=== PATIENT | male | born 1960 | race Caucasian/White ===

== ENCOUNTER 2023-08-18 13:29 | Day surgery (SDC) | payer BC, SELFPAY ==
[2023-08-18 13:30] VITALS: BP 195/104
[2023-08-18 13:40] VITALS: BMI 34.2
[2023-08-18 13:48] VITALS: BP 195/104
--- NOTE | 2023-08-18 13:53 | ITS.CL.CATH ---
Tax Preparer - Catheterization
Cardiac Catheterization
Procedure Report:
CARDIAC CATHETERIZATION REPORT
Date of Procedure: 08/18/2023
Referring: Satish Burton MD
Indication: Preop for ARA with abnormal stress test
HEMODYNAMIC DATA
AO: 187/104
LV: 187/17
LEFT VENTRICULOGRAPHY: Normal left ventricular wall motion. An ejection fraction could not be calculated due to ventricular ectopy but is clearly normal
CORONARY ANGIOGRAPHY
Dominance: Right
Left Main: Normal
LAD: Focal 70 % mid LAD stenosis. There is 90% proximal stenosis in the large first diagonal branch.
Circumflex: There is a tiny ramus intermedius branch. The circumflex proper has mild luminal irregularities. OM1 is a medium sized vessel with mild luminal disease. OM 2 is small. OM 3 is large with 80% proximal stenosis. The circumflex
continues into the AV groove supplying three moderate-sized left posterolateral branches which have diffuse and severe disease
RCA: The RCA has 80-90% proximal stenosis and is occluded in the midportion. The RPDA fills via [id number]-[id number] collaterals and has mild to moderate diffuse disease
Closure Device: None-the procedure was performed via the right radial artery. The Chivo's test was normal prior to the procedure.
Radiation (mGy): 663
DAP (cm2.Gy): 57.9
Fluoroscopy time: 4.1 minutes
CONCLUSIONS
1: Systemic hypertension
2: Normal left ventricular function-an ejection fraction could not be calculated due to ventricular ectopy
3. Severe triple-vessel CAD as described
4. Recommend postponing scheduled total hip arthroplasty and proceeding with evaluation for elective CABG. Optimal revascularization if technically feasible would include grafts to LAD, D1, OM3, and RPDA
5. We will add sublingual nitroglycerin as needed, amlodipine 5 mg daily as all blood pressures here today have been significantly elevated, aspirin 81 mg daily and high intensity statin. The patient has been advised to avoid all strenuous
activity until coronary artery surgery has been accomplished
Copy to: Satish Burton MD, Black Osuna MD
Jay Barrera MD, FAC, [facility]
[2023-08-18] MEDS: NSS 362 ML IV (14:06)
[2023-08-18 14:08] LABS: Glucose - Point of Care 128 mg/dl (70-99)
[2023-08-18 15:26] VITALS: BP 155/119
--- NOTE | 2023-08-18 15:28 | CONSULT.CT ---
Consultation
-
Date/Time Consultation Requested: 08/18/23
Date/Time Consultation Performed: 08/18/23 1530
Requesting Provider: Dr. Jay Barrera MD
Performing Provider: Zulema Hernández PA-C on behalf of Dr. Jude Frazier MD.
Reason for Consultation: Evaluation for coronary artery revascularization
Patient History
Physicians
Family Physician: Dr. desmond Osuna
Outpatient Social Media Editor: Dr. Satish Burton MD.
Inpatient Social Media Editor: [facility] Cardiology. Interventionalist Cards: Dr. Jay Barrera MD.
History of Present Illness
Patient is extremely pleasant 63-year-old male with PMH of paroxysmal atrial fibrillation, atrial flutter status post ablation, off oral anticoagulation due to occupation, newly diagnosed NIDDMII, HTN, gout, and obesity class I (BMI 34.2).
Patient follows with Dr. Satish Burton of cardiology consulted [place]. He presented to his office to undergo cardiac clearance for a scheduled elective total hip arthroplasty with Dr. Eh Harmon MD. at [facility]. Patient was
scheduled for an outpatient stress test on 08/11/2023 prior to undergoing necessary elective joint replacement. Stress test was slightly abnormal and myocardial perfusion. There was a small area of reversibility in the mid inferior wall concerning
for small area of ischemia. Ejection fraction was estimated to be 50 to 62%.
Given the findings above the patient was scheduled for an elective outpatient cardiac catheterization today 08/18/[address] Barrera. Please see Dr. Barrera's full report for complete details summary is as follows:
LM: normal
LAD: 70% mid. 90% prox in large D1 branch
LCx: Mild LI
OM3: 80% prox
RCA: 80-90% prox, occluded in midportion.
RPDA: fills via L->R collaterals.
EF was not calculated due to ventricular ectopy.
old TTE 03/20/17:
EF 60%
MV: trace mr
AV: no as/ai
TV: trace tr
PV: trace pr
LVSD: 34
LVDD: 51
PAP: 26
Overall, the patient is asymptomatic, and reports no symptoms. It comes as somewhat of a shock as he was only undergoing clearance in preparation for his hip arthroplasty.
Past Medical History
Past Medical History: Other
Paroxysmal atrial fibrillation
Atrial flutter status post ablation
Off oral anticoagulation with Eliquis due to occupation (states he has been off for roughly 1 year)
Newly diagnosed NIDDMII
HTN
Obesity class I (BMI 34.2)
Gout
Past Surgical History
Past Surgical History: Other
Ablation for atrial flutter-2019, [facility]
Implantable loop recorder-[facility]
Cervical fusion�2000
Left arthroscopic knee surgery�2008
Cyst removal
Dental History
Noncontributory
Family History
Mother: at Age (75) and Cause of (History of diabetes, complications with renal failure)
Father: at Age (82) and Cause of (Massive myocardial infarction)
Family Medical History: Early CAD
Social History
Alcohol: Occasional (2-7 drinks per week)
Drug: Marijuana
Tobacco: Former Smoker (Quit in 2018. Prior to that smoked 2PPD x 40 years)
Personal:
Living: With Spouse (3 children)
Employment: Employed (mechanical manufacturing engineer)
Allergies
Allergy/AdvReac Type Severity Reaction Status Date / Time
No Known Allergies Allergy Verified 08/18/23 13:51
Home Medications
Medication Instructions Recorded Confirmed Type
aspirin 81 mg tablet 81 mg PO DAILY 08/18/23 08/18/23 History
carvedilol 6.25 mg tablet (Coreg) 12.5 mg PO BID 08/18/23 08/18/23 History
colchicine 0.6 mg tablet (Colcrys) 0.6 mg PO DAILY 08/18/23 08/18/23 History
empagliflozin 25 mg tablet 25 mg PO DAILY 08/18/23 08/18/23 History
(Jardiance)
indomethacin 50 mg capsule 50 mg PO DAILY 08/18/23 08/18/23 History
semaglutide 1 mg/dose (2 mg/1.5 0.5 mg SC QWEEK 08/18/23 08/18/23 History
mL) subcutaneous pen injector
Review of Systems
-
History Source: Patient
General: Reports No Symptoms
HEENT: Reports No Symptoms
Respiratory: Reports No Symptoms
Cardiac: Reports No Symptoms
Abdomen/GI: Reports Reflux and Indigestion; Denies Abdominal Pain, Nausea, Vomiting, Diarrhea, Constipation or BRBPR
: Reports Nocturia (at least 1x/night ); Denies Dysuria, Frequency, Urgency or Hematuria
Musculoskeletal: Reports Myalgias, Arthralgias and Joint Pain
Skin: Denies Itching or Rash
Neurological: Reports No Symptoms
Vascular: Reports No Symptoms
Physical Exam
Vital Signs
Temp 98.1 F 08/18/23 13:30
Temp route: Temporal 08/18/23 13:30
Pulse 79 08/18/23 13:48
Resp Rate 26 08/18/23 13:48
Blood pressure 195/104 08/18/23 13:48
Blood pressure extremity used: Left upper arm 08/18/23 13:30
Position: Sitting 08/18/23 13:30
MAP (cuff-Brianda Monitor) 127 08/18/23 13:48
SaO2 99 08/18/23 13:48
Oxygen Mode of Delivery Room air 08/18/23 13:30
Can the patient verbally communicate their pain? Yes 08/18/23 13:30
Actual Weight 265 lb 15.803 oz 08/18/23 13:40
Body Mass Index (BMI) 34.2 08/18/23 13:40
Diagnostic Studies
Cardiac catheterization: 08/18/23
LM: normal
LAD: 70% mid. 90% prox in large D1 branch
LCx: Mild LI
OM3: 80% prox
RCA: 80-90% prox, occluded in midportion.
RPDA: fills via L->R collaterals.
EF was not calculated due to ventricular ectopy.
Old TTE 03/20/17:
EF 60%
MV: trace mr
AV: no as/ai
TV: trace tr
PV: trace pr
LVSD: 34
LVDD: 51
PAP: 26
Exam
General: Well Developed, Well Nourished and No Apparent Distress
HEENT: Normocephalic, Moist Mucous Membranes, Atraumatic, PERRLA and EOMI
Neck: Trachea Midline; Negative Carotid Bruit
Respiratory: Clear; Negative Wheezes, Crackles, Rhonchi or Accessory Muscle Use
Cardiac: S1/S2, Regular Rhythm and Murmur (Faint 1-2/6 murmur ); Negative Rub or Gallop
GI: Soft, Non Tender, Non Distended and Normal Bowel Sounds
Rectal: Deferred by Provider
Skin: Warm and Dry; Negative Rash
Neuro: AO x 3, No Motor Deficits and CN X-XII Intact
Extremities: Negative Upper Level Edema, Lower Level Edema, Upper Level Cyanosis, Lower Level Cyanosis, Upper Level Clubbing or Lower Level Clubbing
Psych: Calm
Assessment / Plan
-
Assessment:
63-year-old male with PMH of:
Paroxysmal atrial fibrillation
Atrial flutter status post ablation
Off oral anticoagulation with Eliquis due to occupation (states he has been off for roughly 1 year)
Newly diagnosed NIDDMII
HTN
Obesity class I (BMI 34.2)
Gout
H/o ablation for atrial flutter-2019, [facility]
H/o implantable loop recorder-2020, [facility]
H/o cervical fusion�1999
H/o left arthroscopic knee surgery�2008
H/o cyst removal
Now found to have newly diagnosed:
Multivessel coronary artery disease with preserved left ventricular ejection fraction
Plan:
Patient's plan will be discussed with attending physician Dr. Jude Frazier MD
Patient will present electively as an outpatient to the office of Dr. Frazier for consultation on Thursday08/25/2023 at 0830
Further details regarding surgical intervention will be determined during that consultation.
Patient will need to undergo formal preadmission testing.
I would recommend pulmonary function tests given the patient's former smoking history of 2 packs/day x 40 years. Patient quit in 2018
[2023-08-18] MEDS: NORVASC 5 MG PO (16:04)
[2023-08-18] MEDS: COREG 12.5 MG PO (16:24)
== END 2023-08-18 18:05 | disposition home or self-care (01) ==
LOC: CATH 13:29
PROVIDERS: ATTENDING PHYSICIAN Internal Medicine Cardiovascular Disease; CONSULT PHYSICIAN Thoracic Surgery (Cardiothoracic Vascular Surgery); FAMILY PHYSICIAN Family Medicine; OTHER PHYSICIAN Internal Medicine Clinical Cardiac Electrophysiology
DX: I25.10 Atherosclerotic heart disease of native coronary artery without angina pectoris (principal); I10 Essential (primary) hypertension; E66.9 Obesity, unspecified; Z98.890 Other specified postprocedural states; I48.92 Unspecified atrial flutter; I48.0 Paroxysmal atrial fibrillation; Z68.34 Body mass index [BMI] 34.0-34.9, adult; Z79.82 Long term (current) use of aspirin; Z79.84 Long term (current) use of oral hypoglycemic drugs; Z01.810 Encounter for preprocedural cardiovascular examination; R94.39 Abnormal result of other cardiovascular function study
CPT/HCPCS: 82962; 93458; C1894; Q9967

== ENCOUNTER 2023-09-07 05:06 | Inpatient (IN) | payer BC, SELFPAY ==
[2023-08-28 12:05] VITALS: BMI 32.2
[2023-08-28 12:45] LABS: % Basophils 0.7 % (0-2); % Eosinophils 12.2 % (0-6); % Immature Granulocytes 0.1 % (0-0.5); % Lymphocytes 21.1 % (20.5-51.1); % Monocytes 5.1 % (1.7-9.3); % Neutrophils 60.8 % (42.2-75.2); Absolute Basophils 0.1 10^3/uL (0-0.2); Absolute Eosinophils 0.8 10^3/uL (0-0.7); Absolute Lymphocytes 1.5 10^3/uL (1.2-3.4); Absolute Monocytes 0.4 10^3/uL (0.1-0.6); Absolute Neutrophils 4.2 10^3/uL (1.4-6.5); Hematocrit 45.8 % (39.0-52.0); Hemoglobin 15.8 g/dL (13.0-18.0); Mean Corp Hgb Conc. 34.5 g/dL (33.0-37.0); Mean Corpuscular Hgb 27.5 pg (27.0-31.0); Mean Corpuscular Volume 79.7 fL (80.0-94.0); Mean Platelet Volume 9.3 fL (7.4-10.4); Nucleated Red Blood Cells % 0 % (-); Platelet Count 250 10^3/uL (130-400); Red Blood Cell Count 5.75 10^6/uL (4.70-6.10); Red Cell Dist. Width 13.6 % (11.5-14.5); White Blood Cell Count 6.9 10^3/uL (4.8-10.8)
[2023-08-28 12:47] LABS: Urine Albumin Negative (Neg - Trace); Urine Bilirubin Negative (Negative); Urine Character Clear (Clear); Urine Color Yellow; Urine Glucose 3+ (Negative); Urine Ketone Negative (Negative); Urine Leukocyte Negative (Negative); Urine Nitrite Negative (Negative); Urine Occult Blood Negative (Negative); Urine Specific Gravity 1.015 (<1.030); Urine Urobilinogen Negative (Neg - 1+)
[2023-08-28 12:55] LABS: INR 1.08; PT 13.9 Sec (11.4-14.6)
[2023-08-28 12:56] LABS: ALT (SGPT) 26 U/L (0-50); APTT 42.5 Sec (23.4-35.0); AST (SGOT) 22 U/L (17-59); Albumin 4.7 g/dl (3.5-5.0); Alkaline Phosphatase 89 U/L (38-126); Blood Urea Nitrogen 24 mg/dl (9-20); Carbon Dioxide 24 mmol/L (22-30); Chloride 107 mmol/L (98-107); Direct Bilirubin 0.1 mg/dl (0.0-0.4); Estimated Creatinine Clearance 95 ml/min; Glucose 108 mg/dl (70-99); Potassium 4.3 mmol/L (3.5-5.1); Sodium 138 mmol/L (135-145); Total Bilirubin 1.4 mg/dl (0.2-1.3); Total Protein 7.5 g/dl (6.3-8.2); eGFR > 60.00
--- NOTE | 2023-08-28 13:35 | CM ---
CM met w/ patient and spouse during PATs for planned CABG, 09/06.
Pt. resides in a private, 1 story home w/ 1 HAIM w/ spouse. Patient is functionally indep. w/ ADLs, mobility without any DME. Pt. does have RW at home, which he uses PRN due to hip issues (he is scheduled for hip surgery in sev. months).
Reviewed pre and post op routines.
Soap, shower instructions, Cardiac Rehab booklet provided.
Discussed post op restrictions to include lifting, driving, flying and sternal precautions.
Reviewed post op appointments, Cardiac Rehab, and visit from CT Transitional Care RN.
Plan for CT Surgery 09/06.
Anticipated DC plan is for home w/ CT Transitional Care RN.
CM to follow for DC planning needs.
[2023-08-28 13:55] LABS: Glycohemoglobin (HgbA1c) 6.9 % (4.0-5.6)
[2023-09-07] VITALS (16 sets, daily range): BP systolic 97–158; BP diastolic 57–99; BMI 32.2
--- NOTE | 2023-09-07 00:51 | W.PN.CT ---
Assessment / Plan
-
Assessment:
-S/P CABG x 4 (PRAMOD to LAD, GSV to D1, GSV to OM3, GSV to PDA)/Endoscopic harvest/prep of RLE GSV/ ELAA, by Dr. Frazier, 09/07/23, pod#1
-Severe 3v CAD
-LVEF 55-60% per intraop XOCHILT
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
-HTN
-T2DM (A1C 6.9)
-Hyperlipidemia
-Class 1 obesity
-Gout
-Former tobacco abuse (80 pk/yrs, quit 2018)
-DJD of hip, awaiting hip replacement surgery
-S/p Ablation for atrial flutter-2019, [facility]
-S/P Implantable loop recorder-2020, [facility]
-S/p Cervical fusion�1999
-S/p Left arthroscopic knee surgery�2008
-S/P Cyst removal
-Acute postop blood loss/Anemia
-Acute postop atelectasis/pleural effusion
-Acute postop hypovolemia with subsequent hypervolemia
Plan:
-No major issues overnight. Hemodynamically and neurologically intact
-Successfully extubated in the OR, 09/07/23
-Weaned off of Levophed gtt, remains on insulin gtt per protocol
-Last CI , u/o since OR mL
-Monitor chest tube output: 2meds , R/L pls
-D/C'd swan and a-line this AM @ 0430
-Transfer to tele phase tomorrow once off insulin gtt
-D/C higginbotham catheter
-Maintain cordis
-No temporary pacer
-Cont. current meds (ASA, Amiodarone, Lipitor, Lopressor- held last night given hypotension on Levophed; add Plavix)
-Encourage use of IS
-Wean off of O2 as tolerated
-OOB into chair/Ambulate
Subjective
-
Date of Service: September 07, 2023
Objective Data
-
PT 13.9 Sec (11.4-14.6) 08/28/23 12:16
INR 1.08 08/28/23 12:16
APTT 42.5 Sec (23.4-35.0) H 08/28/23 12:16
[2023-09-07] MEDS: BACTROBAN 2% OINTMENT 1 APPLIC NASAL ×2 (05:55→21:46)
[2023-09-07] MEDS: COREG 12.5 MG PO (05:56)
[2023-09-07] MEDS: PROTONIX 40 MG PO (05:56)
[2023-09-07] MEDS: MAGNESIUM OXIDE 500 MG PO (05:56)
--- NOTE | 2023-09-07 06:31 | W.CVOR.SURPR ---
CVOR Surgeon Immed Pre Op
-
I have examined this patient prior to performance of the scheduled procedure.
The patient's condition is unchanged from the time of the dictated/written History and
Physical and the patient is able to undergo the scheduled procedure.
[2023-09-07 06:46] LABS: Hematocrit 43.2 % (39.0-52.0); Hemoglobin 14.5 g/dL (13.0-18.0); Mean Corp Hgb Conc. 33.6 g/dL (33.0-37.0); Mean Corpuscular Hgb 27.2 pg (27.0-31.0); Mean Corpuscular Volume 81.1 fL (80.0-94.0); Mean Platelet Volume 9.3 fL (7.4-10.4); Platelet Count 222 10^3/uL (130-400); Red Blood Cell Count 5.33 10^6/uL (4.70-6.10); Red Cell Dist. Width 13.8 % (11.5-14.5); White Blood Cell Count 6.4 10^3/uL (4.8-10.8)
[2023-09-07 07:07] LABS: Blood Urea Nitrogen 26 mg/dl (9-20); Calcium 9.3 mg/dl (8.4-10.2); Carbon Dioxide 22 mmol/L (22-30); Chloride 109 mmol/L (98-107); Estimated Creatinine Clearance 116 ml/min; Glucose 126 mg/dl (70-99); Magnesium 2.3 mg/dl (1.6-2.3); Potassium 4.1 mmol/L (3.5-5.1); Sodium 137 mmol/L (135-145); eGFR > 60.00
[2023-09-07 07:41] LABS: ACT+ - POC 93 Seconds (82-134)
[2023-09-07 07:43] LABS: B.E. - POC -2.9 mmol/L; Glucose - POC 118 mg/dl (65-99); HCO3 - POC 21 mmol/L (21-29); Hematocrit - POC 38 % PCV (42-52); Hemodilution- POC No; O2 Saturation %Calculated-POC 98.9 5 (92-96); PCO2 - POC 32 mmHg (35-45); PO2 - POC 124 mmHg (80-100); Potassium - POC 3.7 mmol/L (3.6-5.0); Sodium - POC 144 mmol/L (135-145); pH - POC 7.42 (7.35-7.45)
[2023-09-07 08:26] LABS: Urine Albumin Negative (Neg - Trace); Urine Bilirubin Negative (Negative); Urine Character Clear (Clear); Urine Color Yellow; Urine Glucose 3+ (Negative); Urine Ketone Negative (Negative); Urine Leukocyte Negative (Negative); Urine Nitrite Negative (Negative); Urine Occult Blood Negative (Negative); Urine Urobilinogen Negative (Neg - 1+)
--- NOTE | 2023-09-07 08:35 | CM ---
Reviewed chart. Mr. Beverly is in the operating room today. Prior to admission he resides with his spouse in one story home with one step to enter. Prior to admission he was independent with ambulation and adls. He has a rolling walker at home
that he uses as needed due to hip issues. will need to see his functional status post surgery to see if he will need any skilled care needs. Medical work-up in progress. The discharge plan is undetermined at this time.
[2023-09-07 10:29] LABS: ACT+ - POC 598 Seconds (82-134)
[2023-09-07 10:57] LABS: ACT+ - POC 467 Seconds (82-134)
[2023-09-07 11:12] LABS: B.E. - POC -2.4 mmol/L; Glucose - POC 200 mg/dl (65-99); HCO3 - POC 24 mmol/L (21-29); Hematocrit - POC 35 % PCV (42-52); Hemodilution- POC Yes; Hemoglobin Calculated - POC 11.8; Ionized Calcium - POC 1.13 mmol/L (1.12-1.27); PCO2 - POC 44 mmHg (35-45); PO2 - POC 469 mmHg (80-100); Potassium - POC 4.9 mmol/L (3.6-5.0); Sodium - POC 138 mmol/L (135-145); pH - POC 7.34 (7.35-7.45)
[2023-09-07 11:14] LABS: ACT+ - POC 754 Seconds (82-134)
[2023-09-07 11:37] LABS: B.E. - POC -3.8 mmol/L; Glucose - POC 200 mg/dl (65-99); HCO3 - POC 22 mmol/L (21-29); Hematocrit - POC 36 % PCV (42-52); Hemodilution- POC Yes; Hemoglobin Calculated - POC 12.1; Ionized Calcium - POC 1.18 mmol/L (1.12-1.27); O2 Saturation %Calculated-POC 99.9 5 (92-96); PCO2 - POC 42 mmHg (35-45); PO2 - POC 290 mmHg (80-100); Potassium - POC 4.8 mmol/L (3.6-5.0); Sodium - POC 137 mmol/L (135-145); pH - POC 7.33 (7.35-7.45)
[2023-09-07 11:39] LABS: ACT+ - POC 606 Seconds (82-134)
[2023-09-07 12:02] LABS: B.E. - POC -2.1 mmol/L; Glucose - POC 179 mg/dl (65-99); HCO3 - POC 23 mmol/L (21-29); Hematocrit - POC 35 % PCV (42-52); Hemodilution- POC Yes; Hemoglobin Calculated - POC 11.9; Ionized Calcium - POC 1.21 mmol/L (1.12-1.27); O2 Saturation %Calculated-POC 99.9 5 (92-96); PCO2 - POC 39 mmHg (35-45); PO2 - POC 255 mmHg (80-100); Potassium - POC 4.5 mmol/L (3.6-5.0); Sodium - POC 141 mmol/L (135-145); pH - POC 7.38 (7.35-7.45)
[2023-09-07 12:04] LABS: ACT+ - POC 530 Seconds (82-134)
--- NOTE | 2023-09-07 12:23 | CON.INTV ---
Consultation
Consultation Request
Date/Time Consultation Requested: 09/07/2023-1:30 PM
Date/Time Consultation Performed: 09/07/2023-1:30 PM
Requesting Provider: Cardiothoracic surgery
Performing Provider: Dr. Steiner
Reason for Consultation: Postoperative ventilator/critical care management
Medical History
-
Chief Complaint: CAD
History of Present Illness:
63-year-old male with a history of hypertension, atrial fibrillation/flutter, diabetes and morbid obesity underwent CABG and judicial reporter consulted for postoperative ventilator/critical care management 09/07/2023.Patient is intubated and mechanically
ventilated and review of systems was unobtainable. Operative records were reviewed Patient was extubated, still extremely groggy, somewhat combative, review of systems was unobtainable.
Past Medical History
Past Medical History: None (Hypertension. Hyperlipidemia. Morbid obesity. GERMAN suspected. Atrial fibrillation status post ablation 2015. Atrial flutter. Type 2 diabetes. Cervical fusion 1999)
Social History
Tobacco: Non-smoker
Alcohol: Occasional
Drug: None
Personal:
Living: With Family
Occupational Exposures: No known asbestos exposure
Environmental Exposures: No known tuberculosis exposure
Family History
Family History: Other (CAD, diabetes, atrial fibrillation)
Allergies / Home Medications
Allergies
Allergy/AdvReac Type Severity Reaction Status Date / Time
No Known Allergies Allergy Verified 08/25/23 14:34
Home Medications
Medication Instructions Recorded Confirmed Last Taken Type
amlodipine 5 mg tablet 5 mg PO DAILY #90 tabs 08/18/23 09/07/23 1 Day Ago Rx
~09/06/23
atorvastatin 80 mg tablet 80 mg PO QPM #90 tabs 08/18/23 09/07/23 09/06/23 19:00 Rx
carvedilol 6.25 mg tablet (Coreg) 12.5 mg PO BID 08/18/23 09/07/23 09/06/23 18:00 History
colchicine 0.6 mg tablet (Colcrys) 0.6 mg PO DAILY 08/18/23 09/07/23 09/06/23 08:00 History
empagliflozin 25 mg tablet 25 mg PO DAILY 08/18/23 09/07/23 09/06/23 08:00 History
(Jardiance)
indomethacin 50 mg capsule 50 mg PO DAILY 08/18/23 08/25/23 08/17/23 08:00 History
nitroglycerin 0.4 mg sublingual 0.4 mg sublingual [id number] PRN 08/18/23 08/25/23 Unknown Rx
tablet chest pain #25 tabs
aspirin 81 mg capsule 81 mg PO DAILY 08/25/23 09/07/23 09/06/23 08:00 History
semaglutide 1 mg/dose (4 mg/3 mL) 1 mg SC SA 08/25/23 09/07/23 09/05/23 15:00 History
subcutaneous pen injector (Ozempic)
Review of Systems
-
Unable to Obtain full review of systems at this time due to: Patient Intubation
Vitals / Labs / Diagnostic Testing
Lab Data
09/07/23 06:10
09/07/23 06:10
Diagnostic Testing:
Physical Exam
-
Exam:
Well-nourished and well-developed in no apparent distress
HEENT-atraumatic, normocephalic, oral tracheal intubation
Heart-regular rate and rhythm-no murmurs, rubs or gallops
Chest-clear to auscultation, no wheezes, crackles, median sternotomy bandage is not removed
Abdomen soft nondistended
Extremities-no cyanosis, clubbing, edema and good peripheral pulses
Integument-intact, no rashes, lesions or ecchymosis
Neurologically not alert, not oriented, not moving any of his extremities sedated on a ventilator
Assessment
-
63-year-old male with a history of hypertension, atrial fibrillation/flutter, diabetes and morbid obesity underwent CABG and judicial reporter consulted for postoperative ventilator/critical care management 09/07/2023.
Assessment
Significant CAD
Status post CABG x 4-liter-LAD, GSV-D1, GSV-OM 3, GSV to PDA-Dr. Frazier 09/07/2023
Hyperglycemia
Mildly elevated total bilirubin-1.4
Conditions present prior to admission:
Hypertension.
Hyperlipidemia.
Morbid obesity-BMI greater than 40
GERMAN suspected.
Atrial fibrillation status post ablation 2015.
Atrial flutter.
Type 2 diabetes.
Cervical fusion 1999
Plan
Patient extubated in the operating room-currently agitated, somewhat somnolent
Wean FiO2
Noninvasive ventilation or BiPAP as backup if remains somnolent
Follow ABG if necessary
Aspiration precautions
Nebulizers if needed-currently not bronchospastic
Incentive spirometry
Pulmonary artery catheter parameters will be followed
Pressors/antihypertensive/inotropes/diuretics will be provided as needed
Monitor chest tube output
Monitor hemoglobin
Monitor platelet count and coags
Transfuse blood product if needed
CT surgery following chest tubes
Monitor blood sugar
Insulin drip per protocol
Aspiration precautions
VAP prevention protocol
DVT prophylaxis
Early nutrition
Early mobilization
Outpatient obstructive sleep apnea/sleep disordered breathing follow-up
Critical care statement: A total of 55 minutes of critical care time was provided for this patient today. This includes management of ventilator, spontaneous breathing trial, arterial blood gases, pressors, of unstable vital signs, evaluation of the
patient at bedside, reviewing the patient's pertinent medical records including radiographs, microbiology, laboratory evaluations, and discussion with primary team and critical care nursing.
Diagnostic data:
Chest x-ray 08/28/2023-NAD
55-60%, trace mitral regurgitation, mild aortic stenosis echocardiogram 08/28/2023-EF, JHONY 1.3 cm�, PA systolic 20-25
Cardiac catheterization 08/18/2023-normal left ventricular function, severe triple-vessel CAD, recommended postponing total hip arthroplasty and first performed CABG
Data Reviewed
-
EKG: Report reviewed by me
Radiology: Report reviewed by me
CT Scan: Report reviewed by me
Medical Tests (Nuc Med, Echo etc): Report reviewed by me
Labs: Labs reviewed by me
Old Records: Reviewed
Critical Care Time (in minutes): 55
[2023-09-07 12:27] LABS: ACT+ - POC 500 Seconds (82-134)
[2023-09-07 12:36] LABS: B.E. - POC -0.5 mmol/L; Glucose - POC 159 mg/dl (65-99); HCO3 - POC 25 mmol/L (21-29); Hematocrit - POC 36 % PCV (42-52); Hemodilution- POC Yes; Hemoglobin Calculated - POC 12.3; Ionized Calcium - POC 1.19 mmol/L (1.12-1.27); O2 Saturation %Calculated-POC 99.9 5 (92-96); PCO2 - POC 41 mmHg (35-45); PO2 - POC 278 mmHg (80-100); Potassium - POC 4.5 mmol/L (3.6-5.0); Sodium - POC 143 mmol/L (135-145); pH - POC 7.39 (7.35-7.45)
[2023-09-07 12:37] LABS: ACT+ - POC 558 Seconds (82-134)
[2023-09-07 12:55] LABS: ACT+ - POC 539 Seconds (82-134)
[2023-09-07 13:01] LABS: B.E. - POC -1.6 mmol/L; Glucose - POC 146 mg/dl (65-99); HCO3 - POC 24 mmol/L (21-29); Hematocrit - POC 37 % PCV (42-52); Hemodilution- POC Yes; Hemoglobin Calculated - POC 12.6; Ionized Calcium - POC 1.21 mmol/L (1.12-1.27); O2 Saturation %Calculated-POC 99.8 5 (92-96); PCO2 - POC 44 mmHg (35-45); PO2 - POC 257 mmHg (80-100); Potassium - POC 4.1 mmol/L (3.6-5.0); Sodium - POC 144 mmol/L (135-145); pH - POC 7.35 (7.35-7.45)
[2023-09-07 13:05] LABS: ACT+ - POC 499 Seconds (82-134)
[2023-09-07 13:23] LABS: ACT+ - POC 101 Seconds (82-134)
[2023-09-07 13:25] LABS: B.E. - POC -4.2 mmol/L; Glucose - POC 134 mg/dl (65-99); HCO3 - POC 22 mmol/L (21-29); Hematocrit - POC 36 % PCV (42-52); Hemodilution- POC Yes; Hemoglobin Calculated - POC 12.2; Ionized Calcium - POC 1.29 mmol/L (1.12-1.27); O2 Saturation %Calculated-POC 96.4 5 (92-96); PCO2 - POC 43 mmHg (35-45); PO2 - POC 92 mmHg (80-100); Potassium - POC 3.8 mmol/L (3.6-5.0); Sodium - POC 145 mmol/L (135-145); pH - POC 7.32 (7.35-7.45)
--- NOTE | 2023-09-07 13:43 | W.PN.CD ---
Addendum entered and electronically signed by Suhas Madsen MD 09/07/23 17:03:
63 yo male with PMH of CAD, paroxysmal A fib (not on OAC as outpatient) admitted for CABG 09/06. He has been extubated. He is lethargic. Exam with RRR, no murmurs, no edema. Tele and EKG: sinus.
Continue ASA, statin. Trend tele.
Original Note:
Today's Communication / Plan
-
Follow telemetry
Impression / Plan
-
BACKGROUND: 63M with paroxysmal atrial fibrillation/flutter, HTN, HLD, NIDDM, and gout who was undergoing workup for hip replacement when a PET/CT suggested potential of coronary ischemia. This led to cardiac catheterization which demonstrated
multivessel CAD prompting referral for CABG
Electrical Contacts Adjuster: Dr. Satish Burton
IMPRESSION/PLAN:
MCAD S/P CABG x 4 (PRAMOD to LAD, GSV to D1, GSV to OM3, GSV to PDA) with AtriClip on 09/07/[address] Frazier
- XOCHILT with normal biventricular function and without RWMA
- EKG stable, OK & QRS increased
- Resume beta carlos when able
- Follow telemetry
Paroxysmal atrial fibrillation
Atrial flutter, type unknown
- Follow telemetry
- Oral Anticoagulation: None prior to arrival
- [id number]: score 3 (HTN, Diabetes Mellitus, Vascular disease)
HTN
NIDDM, Hgba1c 6.9%, on Jardiance & Ozempic
Mild aortic stenosis, peak/mean gradients are 22/11mmHg, JHONY 1.3cm sq, using a LVOT of 1.9cm
HLD, goal LDL < 70, ideally < 55, continue atorvastatin 80mg
Gout
SUBJECTIVE:
OR note reviewed. Extubated in OR. Following commands.
Physical Exam
Vital Signs/Labs
03/09/07/23 09/08/23
06:59 06:59 06:59
Actual Weight 116.7 kg
PT 13.9 Sec (11.4-14.6) 08/28/23 12:16
INR 1.08 08/28/23 12:16
APTT 42.5 Sec (23.4-35.0) H 08/28/23 12:16
Magnesium 2.3 mg/dl (1.6-2.3) 09/07/23 06:10
Physical Exam
Constitutional: No acute distress and Comfortable
EENT: Anicteric and Moist mucous membranes
Cardiovascular: Rhythm & rate is regular, Systolic murmur absent, S1S2 is normal and Rub present
Respiratory: Respiratory effort normal and Lungs clear to auscul.
GI: Soft, Distention absent, Flat, Non tender and Normal bowel sounds
Neuro/Psych: Alert and Oriented (self)
Other: Skin (warm and dry)
Data Reviewed
-
Date of Service: September 07, 2023
EKG: Report Reviewed by me
Labs: Labs Reviewed by me
Old Records: Reviewed
--- NOTE | 2023-09-07 13:49 | W.IMMPOSTOP ---
Addendum entered and electronically signed by Jude Frazier MD 09/07/23 15:02:
Dictated: [id number]
Original Note:
Surgical Immed Post Op Note
-
CARDIAC SURGERY OPERATIVE NOTE:
Preoperative Dx:
Multivessel CAD
Postoperative Dx:
Same
Procedures:
1) Median sternotomy
2) Takedown of PRAMOD (narrow pedicle)
3) Endoscopic harvest/prep of RLE GSV
4) CABG x 4 (PRAMOD to LAD, GSV to D1, GSV to OM3, GSV to PDA)
5) ELAA
Surgeon:
Jude Frazier M.D.
Assistants:
Elida LyonAMarcos-CMarcos; endoscopic harvest/prep of RLE GSV; sales assistant throughout; closure
Elida GrayA.-CMarcos; endoscopic GSV prep
Diego Moreno PMarcosA.-CMarcos; closure
Anesthesia:
Emiliano Schmitt M.D. and Ольга AdamsR.N.A.
Perfusion:
Margarita Loza C.C.P.; XC: 85min, CPB: 126min
Findings:
The PRAMOD was a very healthy vessel w/ brisk blood flow, ELD 2.5mm
The RLE GSV was a dual system w/ both branches of good quality; ELD 2.5mm-3.5mm
The LAD was visible on the epicardial surface, moderately dense scattered calcifications, normal nash at anastomotic site, ELD 2.75mm
The D1 was visible on the epicardial surface, moderately dense scattered calcifications, thickened nash at anastomotic site, ELD 2.50mm
The OM3 was visible on the epicardial surface, moderately dense scattered calcifications, normal nash at anastomotic site, ELD 3.00mm
The PDA was visible on the epicardial surface, very dense closely associated calcifications throughout, thickened nash at anastomotic site, ELD 1.50mm
Small left atrial appendage w/ chicken-wing morphology
Good flow in all grafts on U/S assessment
Normal biventricular function w/o RWMA, no significant valvular pathologies
OJ exclusion confirmed by XOCHILT
Implants:
AtriClip 35mm; [id number], [id number]
T x 4 (B/L pleural, inferior mediastinal, superior mediastinal)
Sternal wires x 8
Sternal 'X' plate (2 - 14mm, 6 - 16mm)
Sternal 'Square' plate (4 - 12mm)
Complications:
None
Transfusions:
None
Condition:
65 sinus w/ isoelectric STs. 105/66. 38/27. CVP 21. CO/CI: 5.77/2.36. 96%
GTTS: levophed 1, precedex 0.5, insulin 1
Stable/guarded to CVICU
--- NOTE | 2023-09-07 14:30 | PTCARENOTE ---
Assumed care of patinet from CVOR team. Drowsy and dosing on arrival. SR on monitor. RT IJ cordis with swan at 45 cm. Insulin, levophed, and precedex infusimg on arrival. PT with simple mask on with 8 L oxygen, pulse ox 95%. Chest tubes x 4 to
-20 cm suction. No air leak or crepitus noted. Sternal Aquacel cdi. RT groiin puncture approximated and glue present. Rt leg harvest site with keyla Wrap intact. Braun draining clear kwan urine. Abdomen soft with faint bowel sounds noted. DP
pulses palpable.
[2023-09-07 14:35] LABS: Glucose - Point of Care 152 mg/dl (70-99)
--- NOTE | 2023-09-07 14:50 | PTCARENOTE ---
Pt spontaneously awoke, extremely agitated. Removing simple mask, attempting to transfer OOB. Unable to understand nursing redirections. Pt angry , swearing at the nurses, wants to leave. Precedex infusion increased, safe environment provided
--- NOTE | 2023-09-07 14:54 | PN.DE.MGMTRT ---
Insulin Management
- -
09/07/2023: Diabetes Management Consult
63 year old male with Severe 3v CAD, admitted for elective CABG. 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
obesity and Former tobacco abuse (80 pk/yrs, quit 2018).
A1C 6.9%, Cr 0.9, eGFR >60. Pt is currently in OR for CABG x3, attempted to see pt earlier today but was unavailable for interview.
Per chart review, pt was taking Jardiance 25mg daily and Ozempic 1mg SQ every Thursday prior to admission.
He will be managed on critical care glycemic protocol x48 hrs post. Will follow post-op.
Diabetes History
- -
Type of Diabetes: 2
Pre-Admission Diabetes Regimen
09/07/23
06:10
Creatinine 0.9
Lab Results
Hemoglobin A1c 6.9 % (4.0-5.6) H 08/28/23 12:16
Insulin Pump Settings
IP Diabetes Regimen
09/07/23 09/07/23
06:10 14:34
Glucose 126 H
POC Glucose 152 H
Patient Education
[2023-09-07 14:56] LABS: B.E. -1.1 mmol/L; HCO3 24.3 mmol/L (21-28); Ionized Calcium 1.25 mMOL/L (1.15-1.33); O2 Saturation % 98.1 % (94-98); PCO2 42 mmHg (35-48); PO2 101 mmHg (83-108); Potassium 4.1 mMOL/L (3.5-5.1); Sodium 139 mMOL/L (136-145); pH 7.37 (7.35-7.45)
--- NOTE | 2023-09-07 15:04 | W.PN.UPDATE ---
Update Note
Progress Note Update
63 year old male electively admitted for CABG
IV fluids: 1300
U.O.:� 750
UF:� 1300
Blood:� none
Wires:� none
Inotropes:� none
Pressors:� levophed @ 1
Sedatives:� none
�
NEURO: Extubated in OR, drowsy, VILLEGAS spontaneously, pupils +3mm B/L
RESP: Lungs clear B/L. 2 mediastinal (15cc on arrival) and R/L pleural (0cc on arrival) chest tubes to -20cm suction. Sanguineous drainage
CV: RRR +S1, S2, no S3, +rub, no murmur. Aquacell to median sternotomy. RIJ w/Raven locked @ XXcm. PA 16/7; CVP 14; C.O 8.35/CI 3.4
ABD: round, soft, no BS
EXT: no edema, +2/4 DP pulses B/L, no femoral bruit,RLE MAKENNA wrap intact; left radial A-line intact
: Braun with clear yellow urine
�
A/P: POD #0 s/p CABG x 4 GAMEZ-LAD; SVG-D1; SVG-OM3, SVG-PDA; JO #35mm Atricure clip
XOCHILT: EF�55-60%
# CAD
- First dose ASA within 6 hours post-op
- will continue ASA, statin, beta-carlos
- Amio for AF prophylaxis
�
# acute surgical blood loss anemia-expected
- trend CBC /CT output
�
# T2DM (A1C 6.9)
- insulin infusion x 48h
- resume Jardiance when tolerating solids and Ozempic on DC (weekly on Saturdays)
�
# Hypertension
- resume�amlodipine as BP permits
# Gout
- resume Colchicine (will need to cut dose to 0.3mg/d in short term d/t prophylactic Amiodarone use)
[2023-09-07 15:08] LABS: Blood Urea Nitrogen 28 mg/dl (9-20); Estimated Creatinine Clearance 95 ml/min; Glucose 155 mg/dl (70-99); Magnesium 3.6 mg/dl (1.6-2.3)
[2023-09-07] MEDS: DILAUDID 0.5 MG IV (15:11)
[2023-09-07 15:24] LABS: Hematocrit 37.7 % (39.0-52.0); Hemoglobin 12.7 g/dL (13.0-18.0); Platelet Count 207 10^3/uL (130-400)
[2023-09-07 15:28] LABS: APTT 37.5 Sec (23.4-35.0)
--- NOTE | 2023-09-07 15:30 | PTCARENOTE ---
Pt remains intermittently agitated when awakens. Complaining of needing to 'pee' and having chest discomfort. Continues to attempt to remove monitoring devices. dilaudid administered
[2023-09-07 16:06] LABS: Glucose - Point of Care 167 mg/dl (70-99)
[2023-09-07] MEDS: NSS 500 IV (16:45)
[2023-09-07] MEDS: TYLENOL PO (16:46)
[2023-09-07] MEDS: NEURONTIN PO ×2 (16:46)
[2023-09-07] MEDS: ANCEF 10 IV ×2 (16:46)
[2023-09-07] MEDS: NOVOLOG FLEXPEN SC ×2 (16:46)
[2023-09-07] MEDS: PACERONE PO (16:47)
[2023-09-07] MEDS: OFIRMEV 100 IV (16:48)
[2023-09-07 17:04] LABS: Glucose - Point of Care 140 mg/dl (70-99)
[2023-09-07] MEDS: LOW STRENGTH ASPIRIN 81 MG PO (17:28)
[2023-09-07] MEDS: TORADOL 15 MG IV (17:29)
--- NOTE | 2023-09-07 17:38 | PTCARENOTE ---
Awakening appropriately at present. Precedex infusion weaned off. Given CHG bath given, gown placed. Oral care preformed. Pt remains slightly tearful but more appropriate. Family at bedside.
[2023-09-07 17:50] LABS: Glucose - Point of Care 115 mg/dl (70-99)
[2023-09-07 17:57] LABS: Hematocrit 37.4 % (39.0-52.0); Platelet Count 186 10^3/uL (130-400)
[2023-09-07 19:08] LABS: Glucose - Point of Care 118 mg/dl (70-99)
[2023-09-07] MEDS: ROXICODONE 5 MG PO (19:34)
[2023-09-07] MEDS: SENOKOT-S 1 TABLET PO (19:34)
[2023-09-07] MEDS: ANCEF 5 IV (19:34)
--- NOTE | 2023-09-07 19:55 | PTCARENOTE ---
Assumed care of patient at 1900. Patient found in bed with spouse at bedside at time of assessment. Patient is AOx4, follows commands appropriately, moves all extremities. Lung sounds are diminished in the bases, respiration are shallow, patient is
on 6L via NC with saO2 at 98%. Patient has CTx4: 2xmeds to one atrium and R/L pleural to one atrium draining red sanguineous. Heart sounds have a regular rate and rhythm, there is a rub present on auscultation, patient is SR with first deg AV block
on the monitor. Patient has normal palpable radial pulses and weak but palpable dorsalis pedis. No edema is apparent. Patient has soft nontender round obese abdomen with hypoactive BS. There is a higginbotham in place draining clear yellow urine. Patient
has a sternal incision with aquacell dressing that is CDI, CT wounds with ABD dressing that is CDI, a R groin puncture approx with surg adhesive MARKETING ANALYTICS SPECIALIST, and RLE incisionx2 approx with surg adhesive ISAURO and wrapped with MAKENNA. Patient has R IJ cordis with
swan @45cm, R radial ellen, and R Hand PIV. Patient is receiving Cordis KVO, VIP KVO, and insulin gtt. Vital signs as follows: T-99.1 P-69 RR-13 BP-104/57 MAP-71 CVP-7 PAP-21/10. Patient c/o 8/10 sternal pain given esteban 5 which appears effective
upon reassessment. Patient is stable.
[2023-09-07 21:09] LABS: Glucose - Point of Care 116 mg/dl (70-99)
[2023-09-07] MEDS: PACERONE 200 MG PO (21:44)
[2023-09-07] MEDS: FLEXERIL 10 MG PO (21:44)
[2023-09-07] MEDS: NEURONTIN 100 MG PO (21:44)
[2023-09-07] MEDS: LIPITOR 80 MG PO (21:44)
[2023-09-07] MEDS: TYLENOL 1000 MG PO (21:44)
[2023-09-07 23:11] LABS: Glucose - Point of Care 101 mg/dl (70-99)
[2023-09-08] VITALS (33 sets, daily range): BP systolic 93–135; BP diastolic 68–93; PULSE 74; O2SAT 93–94; BMI 31.9
--- NOTE | 2023-09-08 | PTCARENOTE ---
Patient reassessed. VSS. Patient remains in SR with first degree AV block. Patient sleeping at time of assessment with no complaints.
[2023-09-08] MEDS: TORADOL 15 MG IV ×3 (00:06→08:46)
[2023-09-08 01:05] LABS: Glucose - Point of Care 103 mg/dl (70-99)
[2023-09-08 03:22] LABS: Glucose - Point of Care 98 mg/dl (70-99)
[2023-09-08 03:40] LABS: Hematocrit 37.5 % (39.0-52.0); Hemoglobin 12.8 g/dL (13.0-18.0); Mean Corp Hgb Conc. 34.1 g/dL (33.0-37.0); Mean Corpuscular Hgb 27.2 pg (27.0-31.0); Mean Corpuscular Volume 79.8 fL (80.0-94.0); Mean Platelet Volume 9.1 fL (7.4-10.4); Platelet Count 202 10^3/uL (130-400); Red Cell Dist. Width 14.2 % (11.5-14.5); White Blood Cell Count 9.8 10^3/uL (4.8-10.8)
--- NOTE | 2023-09-08 03:43 | W.PN.CT ---
Addendum entered and electronically signed by Jude Frazier MD 09/08/23 09:09:
I saw and examined the patient.
The PA's note was reviewed and I agree with the note.
De-line
OOB/IS/ambulate
ASA/plavix, BB once stable OFF levo, amio, lipitor
Original Note:
Today's Communication / Plan
-
Plan:
-No major issues overnight. Hemodynamically and neurologically intact
-Successfully extubated in the OR, 09/07/23
-Postop EKG consistent with acute pericarditis, pain is currently manageable and not excruciating
-Weaned off of Levophed gtt, remains on insulin gtt per protocol
-Last CI 2.58, u/o since OR 1525 mL
-Monitor chest tube output: 2meds 20/95, R/L pls 55/135
-D/C'd swan and a-line this AM @ 0430
-Transfer to tele phase tomorrow once off insulin gtt
-D/C higginbotham catheter
-Maintain cordis
-No temporary pacer
-Cont. current meds (ASA, Amiodarone, Lipitor, Lopressor- held last night given hypotension on Levophed; add Plavix)
-Encourage use of IS
-Wean off of O2 as tolerated
-OOB into chair/Ambulate
Assessment / Plan
-
Assessment:
-S/P CABG x 4 (PRAMOD to LAD, GSV to D1, GSV to OM3, GSV to PDA)/Endoscopic harvest/prep of RLE GSV/ ELAA, by Dr. Frazier, 09/07/23, pod#1
-Severe 3v CAD
-LVEF 55-60% per intraop XOCHILT
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
-HTN
-T2DM (A1C 6.9)
-Hyperlipidemia
-Class 1 obesity
-Gout
-Former tobacco abuse (80 pk/yrs, quit 2018)
-DJD of hip, awaiting hip replacement surgery
-S/p Ablation for atrial flutter-2019, [facility]
-S/P Implantable loop recorder-2020, [facility]
-S/p Cervical fusion�2000
-S/p Left arthroscopic knee surgery�2008
-S/P Cyst removal
-Acute postop blood loss/Anemia
-Acute postop atelectasis/pleural effusion
-Acute postop hypovolemia with subsequent hypervolemia
-Postop acute pericarditis (+ rub) - pain is manageable and not excruciating
Discussed patient care with: Cardiology, Nursing, Respiratory Therapy, Pharmacy and Care Team
Subjective
Procedure
S/P CABG x 4 (PRAMOD to LAD, GSV to D1, GSV to OM3, GSV to PDA)/Endoscopic harvest/prep of RLE GSV/ ELAA, by Dr. Frazier, 09/07/23, pod#1
-
Date of Service: September 08, 2023
Pt c/o incisional pain, otherwise feels well. Denies excruciating pain and states his pain is manageable
Objective Data
-
PT 16.0 Sec (11.4-14.6) H 09/07/23 15:01
INR 1.30 09/07/23 15:01
APTT 37.5 Sec (23.4-35.0) H 09/07/23 15:01
Vital Signs
Vital Signs
Temp Pulse Resp BP Pulse Ox
99.3 F 78 22 105/74 95
09/08/23 03:21 09/08/23 03:21 09/08/23 03:21 09/08/23 03:21 09/08/23 03:21
CT Intake/Output/Weight
09/07/23 09/07/23 09/08/23
06:59 18:59 06:59
Intake Total 263.0 / 467.4 204.4 / 467.4
Output Total 800 / 1680 880 / 1680
Balance -537.0 / -1212.6 -675.6 / -1212.6
SaO2: 95 (2L)
Physical Exam
-
General: Awake, Oriented and AOx3
Cardiovascular: Regular rate & rhythm, No Murmurs, Rub (acute pericarditis) and No Gallop
Respiratory: Decreased Breath Sounds
Sternum: Stable
Incision: Clean, Dry, Intact and Dressing Intact
Extremities: Other (+trace edema)
Data Reviewed
-
Lab Results: Results Reviewed
Medications: Active Meds Reviewed
Chest X-Ray: Report Reviewed and Image Reviewed
ECG: Report Reviewed and Image Reviewed
[2023-09-08] MEDS: ANCEF 5 IV ×2 (04:12→11:26)
[2023-09-08 04:29] LABS: Blood Urea Nitrogen 27 mg/dl (9-20); Calcium 8.9 mg/dl (8.4-10.2); Carbon Dioxide 23 mmol/L (22-30); Chloride 112 mmol/L (98-107); Estimated Creatinine Clearance 116 ml/min; Glucose 104 mg/dl (70-99); Magnesium 2.8 mg/dl (1.6-2.3); Potassium 4.3 mmol/L (3.5-5.1); Sodium 138 mmol/L (135-145); eGFR > 60.00
--- NOTE | 2023-09-08 04:30 | PTCARENOTE ---
Patient reassessed. AM labs obtained. AM hygiene care provided. AM EKG obtained. Orders received to deline patient. Successfully assisted patient OOB to chair. Patient is stable.
[2023-09-08 04:56] LABS: Glucose - Point of Care 111 mg/dl (70-99)
--- NOTE | 2023-09-08 07:00 | PTCARENOTE ---
Bedside walking rounds report received. Patient seen on rounds oob in chair on room air and tolerating well. NSR on monitor. No wires. Neuro intact. Vitals stable. Chest tubes x 4 (2 meds to 1 pleur evac/right and left and right pleural to 1 pleur
evac) -20 cm wall suction: no air leak noted. Vitals stable. See flow record for remaining assessments and pain management documentation. IS encourage to 1000ml.
[2023-09-08 07:12] LABS: Glucose - Point of Care 124 mg/dl (70-99)
[2023-09-08] MEDS: TYLENOL 1000 MG PO ×3 (07:30→21:16)
--- NOTE | 2023-09-08 07:38 | W.PN.INTV ---
Today's Communication / Plan
Recommendations
Norepinephrine wean
Discontinue pulmonary artery catheter and arterial line
Insulin drip continues
DC Braun catheter
Maintain ICU status while on insulin drip
Assessment
-
63-year-old male with a history of hypertension, atrial fibrillation/flutter, diabetes and morbid obesity underwent CABG and parts identifier consulted for postoperative ventilator/critical care management 09/07/2023.
Assessment
Significant CAD
Status post CABG x 4-liter-LAD, GSV-D1, GSV-OM 3, GSV to PDA-Dr. Frazier 09/07/2023
Pericarditis
Hyperglycemia
Mildly elevated total bilirubin-1.4
Conditions present prior to admission:
Hypertension.
Hyperlipidemia.
Morbid obesity-BMI greater than 40
GERMAN suspected.
Atrial fibrillation status post ablation 2015.
Atrial flutter.
Type 2 diabetes.
Cervical fusion 1999
Plan
Tolerated extubation
Wean FiO2
Encourage incentive spirometry
Increase activity
Aspiration precautions
Pulmonary artery catheter and arterial line will be removed
Pressors have been weaned-weaned off norepinephrine
Continue to monitor chest tube output
Follow hemoglobin
Continue to follow platelet count and coags
Transfuse blood product as needed
CT surgery following chest tubes as well
Follow blood sugar
Insulin supplementation continues as needed
Begin nutrition
Begin mobilization
DVT prophylaxis
Patient remains in intensive care unit on the insulin drip-parts identifier will continue to follow
Outpatient obstructive sleep apnea/sleep disordered breathing follow-up
Reviewed the patient's pertinent medical records including radiographs, microbiology, laboratory evaluations, and discussion with primary team, consultants, pharmacy, nutrition, physical therapy, case management, charge nurse, critical care
nursing, and respiratory therapy.
Diagnostic data:
Chest x-ray 08/28/2023-NAD
55-60%, trace mitral regurgitation, mild aortic stenosis echocardiogram 08/28/2023-EF, JHONY 1.3 cm�, PA systolic 20-25
Cardiac catheterization 08/18/2023-normal left ventricular function, severe triple-vessel CAD, recommended postponing total hip arthroplasty and first performed CABG
Subjective Dataa
Subjective Data
Date of Service:
Date of Service: September 08, 2023
Chief Complaint: Dough Mixer Helper Follow Up, Pulmonary Follow Up and Vent Management Follow Up
Subjective:
Tolerated extubation, some incisional pain but overall controlled, no shortness of breath, mild chest congestion, minimal sputum, no abdominal pain, still on insulin drip
Review of Systems
General: Other (Per HPI)
Objective Data
Data Reviewed
Vital Signs / I&O / Oxygen:
Vital Signs
Temp Pulse Resp BP Pulse Ox
99.1 F 81 22 111/77 92
09/08/23 04:00 09/08/23 07:15 09/08/23 04:00 09/08/23 04:56 09/08/23 07:15
Intake and Output
09/07/23 09/08/23 09/09/23
06:59 06:59 06:59
Intake Total 522.8 / 522.8
Output Total 1944 / 1944
Balance -1422.2 / -1422.2
SaO2 92
Nasal Cannula flow liters per 2
minute
Physical Exam
General: Respiratory Distress (n) and Comfortable
HEENT: Normocephalic, Anicteric and Moist Mucous Membranes
Cardiovascular: Regular Rhythm
Respiratory: Wheeze (n), Crackles ( few basilar), Rhonchi (n), Non-Labored Respirations, Accessory Resp Muscle Use (n) and Stridor (n)
GI: Soft, Non Distended and Non Tender
Neurology: Awake, Alert and No Motor Deficits
Skin: Warm, Good Color, Cyanosis (n) and Jaundice (n)
Labs/Micro/Reports
Lab Data
09/08/23 03:28
09/08/23 03:28
Laboratory Results
09/07/23 09/07/23 09/07/23
14:37 14:38 15:01
PT Cancelled 16.0 H
INR Cancelled 1.30
APTT Cancelled 37.5 H
pH 7.37
pCO2 42
pO2 101
HCO3 24.3
O2 Delivery Level
[2023-09-08] MEDS: PLAVIX 75 MG PO (08:47)
[2023-09-08] MEDS: LIDOCAINE 4% PATCH 1 PATCH TOPICAL (08:47)
[2023-09-08] MEDS: LOPRESSOR 12.5 MG PO ×2 (08:47→19:24)
[2023-09-08] MEDS: PROTONIX 40 MG PO (08:47)
[2023-09-08] MEDS: LOW STRENGTH ASPIRIN 81 MG PO (08:47)
[2023-09-08] MEDS: SENOKOT-S 1 TABLET PO ×2 (08:47→19:25)
[2023-09-08] MEDS: PACERONE 200 MG PO ×3 (08:47→21:15)
[2023-09-08] MEDS: NOVOLOG FLEXPEN SC ×2 (08:48→13:09)
[2023-09-08] MEDS: NEURONTIN 100 MG PO (08:48)
[2023-09-08] MEDS: BACTROBAN 2% OINTMENT 1 APPLIC NASAL ×2 (08:49→19:24)
[2023-09-08 09:05] LABS: Glucose - Point of Care 137 mg/dl (70-99)
--- NOTE | 2023-09-08 10:30 | PTCARENOTE ---
Braun cath discontinued. Urinal provided.
[2023-09-08 11:23] LABS: Glucose - Point of Care 163 mg/dl (70-99)
[2023-09-08] MEDS: DILAUDID 0.5 MG IV (11:26)
--- NOTE | 2023-09-08 11:29 | W.PN.ANS.POP ---
Anesthesia Post Operative
- Anesthesia Post Op Note
Vital Signs Stable-See Nursing Note: Yes
Airway Patent: Yes
Adequate Pain Control: Yes
Change in Mental Status: No
Current Postoperative Nausea & Vomiting: No
Anesthesia Complications: No
General Anesthetic Recall: No
Unplanned Admission: No
Post Op Hydration Adequate: Yes
--- NOTE | 2023-09-08 11:30 | PTCARENOTE ---
1130Assisted patient back to bed with assist of 2. No 'dumping' from chest tubes.
[2023-09-08 12:50] LABS: Glucose - Point of Care 107 mg/dl (70-99)
[2023-09-08] MEDS: NSS IV (13:10)
[2023-09-08] MEDS: FLEXERIL 5 MG PO (14:44)
[2023-09-08] MEDS: ROXICODONE 5 MG PO ×2 (14:45→19:25)
[2023-09-08 15:17] LABS: Glucose - Point of Care 104 mg/dl (70-99)
[2023-09-08] MEDS: NEURONTIN 200 MG PO ×2 (15:31→21:16)
[2023-09-08] MEDS: NOVOLOG FLEXPEN 4 UNITS SC (16:04)
[2023-09-08 16:06] LABS: Glucose - Point of Care 132 mg/dl (70-99)
--- NOTE | 2023-09-08 16:14 | PTCARENOTE ---
No acute changes. NSR Room air. Chest tubes dressing changed. No urge to void as of yet post higginbotham catheter removal.
--- NOTE | 2023-09-08 16:51 | W.PN.CD ---
Today's Communication / Plan
-
Discussed that benefits of OAT clearly outweigh risks and his occupation is NOT a contraindication to OAT. He will consider this recommendation
Impression / Plan
-
BACKGROUND: 63M with paroxysmal atrial fibrillation/flutter, HTN, HLD, NIDDM, and gout who was undergoing workup for hip replacement when a PET/CT suggested potential of coronary ischemia. This led to cardiac catheterization which demonstrated
multivessel CAD prompting referral for CABG
Musical Instrument Maker: Dr. Satish Burton
IMPRESSION/PLAN:
MCAD S/P CABG x 4 (PRAMOD to LAD, GSV to D1, GSV to OM3, GSV to PDA) with AtriClip on 09/07/[address] Frazier
- XOCHILT with normal biventricular function and without RWMA
- EKG stable, [place] & QRS increased
- On BB
Paroxysmal atrial fibrillation
Atrial flutter, type unknown
- Follow telemetry
- Oral Anticoagulation: None prior to arrival. 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 If he agrees would start this on discharge
- [id number]: score 3 (HTN, Diabetes Mellitus, Vascular disease)
HTN
NIDDM, Hgba1c 6.9%, on Jardiance & Ozempic
Mild aortic stenosis, peak/mean gradients are 22/11mmHg, JHONY 1.3cm sq, using a LVOT of 1.9cm
HLD, goal LDL < 70, ideally < 55, continue atorvastatin 80mg
Gout
SUBJECTIVE:
Awake and alert
Feels surprisingly good for POD1
Physical Exam
Vital Signs/Labs
Vital Signs
Temp Pulse Resp BP Pulse Ox
97.4 F 72 20 110/73 91
09/08/23 15:37 09/08/23 16:00 09/08/23 15:37 09/08/23 16:00 09/08/23 15:45
09/07/23 09/08/23 09/09/23
06:59 06:59 06:59
Actual Weight 257 lb 4.471 oz 255 lb 1.197 oz
09/08/23 03:28
09/08/23 03:28
PT 16.0 Sec (11.4-14.6) H 09/07/23 15:01
INR 1.30 09/07/23 15:01
APTT 37.5 Sec (23.4-35.0) H 09/07/23 15:01
Magnesium 2.8 mg/dl (1.6-2.3) H 09/08/23 03:28
Physical Exam
Constitutional: No acute distress
EENT: Anicteric
Cardiovascular: Rhythm & rate is regular and Murmur/rub/gallop absent
Respiratory: Respiratory effort normal, Lungs clear to auscul., Wheeze Absent and Crackles Absent
GI: Distention absent and Normal bowel sounds
Neuro/Psych: AO x 3 and Motor deficits absent
Data Reviewed
-
Date of Service: September 08, 2023
[2023-09-08] MEDS: NOVOLIN R INSULIN INFUSION 100 IV (16:53)
[2023-09-08 18:06] LABS: Glucose - Point of Care 182 mg/dl (70-99)
[2023-09-08 19:08] LABS: Glucose - Point of Care 162 mg/dl (70-99)
--- NOTE | 2023-09-08 19:15 | PTCARENOTE ---
Assumed care of patient. NSR. VSS. Pt c/o pain, refer to MAR for medication administration. Remains on insulin gtt per glycemic protocol. CTs x4 intact, serosanguinous drainage. DTV - pt does not have the urge to void yet. Assessment per nursing
flowsheet. Spouse updated at bedside
[2023-09-08] MEDS: LIPITOR 80 MG PO (21:15)
[2023-09-08] MEDS: FLEXERIL 10 MG PO (21:15)
[2023-09-08 21:19] LABS: Glucose - Point of Care 119 mg/dl (70-99)
[2023-09-08 23:06] LABS: Glucose - Point of Care 91 mg/dl (70-99)
[2023-09-09] VITALS (17 sets, daily range): BP systolic 109–131; BP diastolic 72–85; BMI 32.2
--- NOTE | 2023-09-09 00:04 | PTCARENOTE ---
NSR. Rare PVCs. VSS. On 3L NC. Chest tubes with minimal output. Insulin gtt per gylcemic protocol. 400 kwan UO. Assessment unchanged. Pt resting on/off
[2023-09-09 01:17] LABS: Glucose - Point of Care 111 mg/dl (70-99)
[2023-09-09 03:09] LABS: Glucose - Point of Care 101 mg/dl (70-99)
--- NOTE | 2023-09-09 04:23 | PTCARENOTE ---
NSR. VSS on 3L. Denies pain at this time. Insulin gtt per glycemic protocol. Voiding. CT with minimal drainage. Assessment unchanged. Labs drawn
[2023-09-09 04:45] LABS: Glucose - Point of Care 110 mg/dl (70-99)
--- NOTE | 2023-09-09 04:53 | W.PN.CT ---
Today's Communication / Plan
-
Plan:
-No major issues overnight. Hemodynamically and neurologically intact
-Off all drips
-Consider d/c of chest tubes: 2meds , R/L pls
-Cont. current meds (ASA, Plavix, Amiodarone, Lipitor, Lopressor- was on Coreg @ home)
-Maintain cordis another day
-No temporary pacer
-Encourage use of IS
-Wean off of O2 as tolerated
-OOB into chair/Ambulate
Assessment / Plan
-
Assessment:
-S/P CABG x 4 (PRAMOD to LAD, GSV to D1, GSV to OM3, GSV to PDA)/Endoscopic harvest/prep of RLE GSV/ ELAA, by Dr. Frazier, 09/07/23, pod#2
-Severe 3v CAD
-LVEF 55-60% per intraop XOCHILT
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
-HTN
-T2DM (A1C 6.9)
-Hyperlipidemia
-Class 1 obesity
-Gout
-Former tobacco abuse (80 pk/yrs, quit 2018)
-DJD of hip, awaiting hip replacement surgery
-S/p Ablation for atrial flutter-2019, [facility]
-S/P Implantable loop recorder-2020, [facility]
-S/p Cervical fusion�1999
-S/p Left arthroscopic knee surgery�2008
-S/P Cyst removal
-Acute postop blood loss/Anemia
-Acute postop atelectasis/pleural effusion
-Acute postop hypovolemia with subsequent hypervolemia
-Postop acute pericarditis (+ rub) - pain is manageable and not excruciating
Discussed patient care with: Cardiology, Nursing, Respiratory Therapy, Pharmacy and Care Team
Subjective
Procedure
S/P CABG x 4 (PRAMOD to LAD, GSV to D1, GSV to OM3, GSV to PDA)/Endoscopic harvest/prep of RLE GSV/ ELAA, by Dr. Frazier, 09/07/23
-
Date of Service: September 09, 2023
Objective Data
-
PT 16.0 Sec (11.4-14.6) H 09/07/23 15:01
INR 1.30 09/07/23 15:01
APTT 37.5 Sec (23.4-35.0) H 09/07/23 15:01
Vital Signs
Vital Signs
Temp Pulse Resp BP Pulse Ox
98.8 F 68 16 129/78 93
09/09/23 04:22 09/09/23 04:30 09/09/23 04:22 09/09/23 04:00 09/09/23 04:30
CT Intake/Output/Weight
09/08/23 09/08/23 09/09/23
06:59 18:59 06:59
Intake Total 259.8 / 522.8 733.2 / 856.5 123.3 / 856.5
Output Total 1145 / 1945 405 / 1285 880 / 1285
Balance -885.2 / -1422.2 328.2 / -428.5 -756.7 / -428.5
SaO2: 93 (2L)
Physical Exam
-
General: Awake, Oriented and AOx3
Cardiovascular: Regular rate & rhythm, No Murmurs, No Rub and No Gallop
Respiratory: Decreased Breath Sounds (at bases, otherwise clear)
Sternum: Stable
Incision: Clean, Dry, Intact and Dressing Intact
Extremities: Other (trace edema)
Data Reviewed
-
Lab Results: Results Reviewed
Medications: Active Meds Reviewed
Chest X-Ray: Report Reviewed and Image Reviewed
ECG: Report Reviewed and Image Reviewed
[2023-09-09 04:54] LABS: Hematocrit 36.8 % (39.0-52.0); Hemoglobin 12.2 g/dL (13.0-18.0); Mean Corp Hgb Conc. 33.2 g/dL (33.0-37.0); Mean Corpuscular Hgb 27.4 pg (27.0-31.0); Mean Corpuscular Volume 82.7 fL (80.0-94.0); Mean Platelet Volume 9.2 fL (7.4-10.4); Platelet Count 188 10^3/uL (130-400); Red Blood Cell Count 4.45 10^6/uL (4.70-6.10); Red Cell Dist. Width 14.1 % (11.5-14.5)
[2023-09-09 05:17] LABS: Blood Urea Nitrogen 29 mg/dl (9-20); Calcium 8.7 mg/dl (8.4-10.2); Carbon Dioxide 24 mmol/L (22-30); Chloride 106 mmol/L (98-107); Estimated Creatinine Clearance 104 ml/min; Glucose 109 mg/dl (70-99); Magnesium 2.4 mg/dl (1.6-2.3); Sodium 134 mmol/L (135-145); eGFR > 60.00
[2023-09-09] MEDS: TYLENOL 1000 MG PO ×3 (05:22→21:46)
[2023-09-09] MEDS: ROXICODONE 5 MG PO ×2 (05:22→10:17)
[2023-09-09 07:09] LABS: Glucose - Point of Care 116 mg/dl (70-99)
--- NOTE | 2023-09-09 07:11 | W.PN.INTV ---
Today's Communication / Plan
Recommendations
Hemodynamically stable
Off pressors
Wean oxygen
Increase activity
Insulin drip will be discontinued
Chest tubes will be discontinued
Transfer to telemetry-call pulmonary with respiratory issues
Assessment
-
63-year-old male with a history of hypertension, atrial fibrillation/flutter, diabetes and morbid obesity underwent CABG and wellness program administrator consulted for postoperative ventilator/critical care management 09/07/2023.
Assessment
Significant CAD
Status post CABG x 4-liter-LAD, GSV-D1, GSV-OM 3, GSV to PDA-Dr. Frazier 09/07/2023
Pericarditis
Hyperglycemia
Mildly elevated total bilirubin-1.4
Conditions present prior to admission:
Hypertension.
Hyperlipidemia.
Morbid obesity-BMI greater than 40
GERMAN suspected.
Atrial fibrillation status post ablation 2015.
Atrial flutter.
Type 2 diabetes.
Cervical fusion 1999
Plan
Tolerated extubation
Wean FiO2
Encourage incentive spirometry
Increase activity
Aspiration precautions
Pulmonary artery catheter and arterial line will be removed
Pressors have been weaned
Continue to monitor chest tube output
Follow hemoglobin
Continue to follow platelet count and coags
Transfuse blood product as needed
CT surgery following chest tubes as well
Follow blood sugar
Insulin supplementation continues as needed
Early nutrition
Early mobilization
DVT prophylaxis
Outpatient obstructive sleep apnea/sleep disordered breathing follow-up
Patient will be transferred to telemetry phase-call pulmonary if respiratory issues arise
Reviewed the patient's pertinent medical records including radiographs, microbiology, laboratory evaluations, and discussion with primary team, and critical care nursing.
Diagnostic data:
Chest x-ray 08/28/2023-NAD
55-60%, trace mitral regurgitation, mild aortic stenosis echocardiogram 08/28/2023-EF, JHONY 1.3 cm�, PA systolic 20-25
Cardiac catheterization 08/18/2023-normal left ventricular function, severe triple-vessel CAD, recommended postponing total hip arthroplasty and first performed CABG
Subjective Dataa
Subjective Data
Date of Service:
Date of Service: September 09, 2023
Chief Complaint: Executive Sales Manager Follow Up, Pulmonary Follow Up and Vent Management Follow Up
Subjective:
Out of bed, no complaints of worsening shortness of breath, pain controlled, chest tubes with minimal drainage, no abdominal pain
Review of Systems
General: Other (Per HPI)
Objective Data
Data Reviewed
Vital Signs / I&O / Oxygen:
Vital Signs
Temp Pulse Resp BP Pulse Ox
98.8 F 68 16 129/78 93
09/09/23 04:22 09/09/23 04:30 09/09/23 04:22 09/09/23 04:00 09/09/23 04:59
Intake and Output
09/08/23 09/09/23 09/10/23
06:59 06:59 06:59
Intake Total 522.8 / 522.8 856.5 / 856.5
Output Total 1945 / 5 1300 / 1300
Balance -1422.2 / -1422.2 -443.5 / -443.5
SaO2 93
Nasal Cannula flow liters per 3
minute
Physical Exam
General: Respiratory Distress (n) and Comfortable
HEENT: Normocephalic, Anicteric and Moist Mucous Membranes
Cardiovascular: Regular Rhythm
Respiratory: Wheeze (n), Crackles ( few basilar), Rhonchi (n), Non-Labored Respirations, Accessory Resp Muscle Use (n) and Stridor (n)
GI: Soft, Non Distended and Non Tender
Neurology: Awake, Alert and No Motor Deficits
Skin: Warm, Good Color, Cyanosis (n) and Jaundice (n)
Labs/Micro/Reports
Lab Data
09/09/23 04:38
09/09/23 04:38
--- NOTE | 2023-09-09 07:45 | PTCARENOTE ---
Assumed care of patient. Pt assessed while he was sitting in the chair. Pt alert and oriented x4. VILLEGAS with equal strength throughout. Denies pain, shortness of breath, and nausea. NSR on tele with rates in the 70s. BP stable 123/74. Bilateral radial
pulses palpable. Bilateral DP pulses weakly palpable. No edema noted. POX 93% on 2L NC. Lungs diminished in the bases. No cough noted. IS encouraged-1000mL achieved. Right and left pleural chest tubes y-sited to 1 atrium to -20cm suction draining
serosanguineous fluid. Mediastinal x2 chest tubes y-sited to 1 atrium to -20cm suction draining serosanguineous fluid. No air leaks, tidaling, crepitus. Abdomen soft, round, nontender. Hypoactive BS. Pt reports passing gas. Due to void for this RN.
Tolerating diet. Sternal incision covered with Aquacel-CDI. Chest tube dressing CDI. Right groin puncture site approximated with skin glue. Right SVG harvest approximated with skin glue. Right IJ cordis intact infusing NSS KVO and insulin gtt per
critical care glycemic protocol. Right hand 18g PIV intact. See MAR for medication administration. See worklist for complete nursing assessment. Plan of care reviewed and patient in agreement.
[2023-09-09] MEDS: NOVOLOG FLEXPEN 4 UNITS SC (07:51)
[2023-09-09] MEDS: BACTROBAN 2% OINTMENT 1 APPLIC NASAL ×2 (07:52→19:49)
[2023-09-09] MEDS: FLUSH (NSS) 1 FLUSH IV (07:52)
[2023-09-09] MEDS: SENOKOT-S 1 TABLET PO ×2 (07:53→19:48)
[2023-09-09] MEDS: PACERONE 200 MG PO ×3 (07:53→21:45)
[2023-09-09] MEDS: NSS 500 IV (07:53)
[2023-09-09] MEDS: NEURONTIN 200 MG PO ×3 (07:53→21:45)
[2023-09-09] MEDS: LIDOCAINE 4% PATCH 1 PATCH TOPICAL (07:53)
[2023-09-09] MEDS: LOPRESSOR 12.5 MG PO ×2 (07:53→19:48)
[2023-09-09] MEDS: PLAVIX 75 MG PO (07:53)
[2023-09-09] MEDS: LOW STRENGTH ASPIRIN 81 MG PO (07:53)
[2023-09-09] MEDS: PROTONIX 40 MG PO (07:53)
--- NOTE | 2023-09-09 08:19 | W.PN.CD ---
Today's Communication / Plan
-
continue current post op course
CM to adkins Eliquis 5mg po bid
ultimated recommend clopidogrel/Eliquis on dc if possible
Impression / Plan
-
BACKGROUND: 63M with paroxysmal atrial fibrillation/flutter, HTN, HLD, NIDDM, and gout who was undergoing workup for hip replacement when a PET/CT suggested potential of coronary ischemia. This led to cardiac catheterization which demonstrated
multivessel CAD prompting referral for CABG
Jewelry Casting Model Maker: Dr. Satish Burton
IMPRESSION/PLAN:
MCAD S/P CABG x 4 (PRAMOD to LAD, GSV to D1, GSV to OM3, GSV to PDA) with AtriClip on 09/07/[address] Frazier
- XOCHILT with normal biventricular function and without RWMA
- EKG wtih diffuse mild HAIM c/w pericarditis but he has no symptoms, re assess at CT come out
- On BB, atorva, DAPT
Paroxysmal atrial fibrillation
Atrial flutter, type unknown
- Follow telemetry
- Oral Anticoagulation: Recommend DOAC with plavix by discharge
-I have asked CM to adkins
- [id number]: score 3 (HTN, Diabetes Mellitus, Vascular disease)
HTN
NIDDM, Hgba1c 6.9%, on Jardiance & Ozempic
Mild aortic stenosis, peak/mean gradients are 22/11mmHg, JHONY 1.3cm sq, using a LVOT of 1.9cm
HLD, goal LDL < 70, ideally < 55, continue atorvastatin 80mg
Gout
SUBJECTIVE:
no complaints, feeling good, oob in chair
Physical Exam
Vital Signs/Labs
Vital Signs
Temp Pulse Resp BP Pulse Ox
98.8 F 74 16 114/76 92
09/09/23 04:22 09/09/23 07:00 09/09/23 04:22 09/09/23 06:00 09/09/23 07:00
09/08/23 09/09/23 09/10/23
06:59 06:59 06:59
Actual Weight 115.7 kg 116.8 kg
09/09/23 04:38
09/09/23 04:38
PT 16.0 Sec (11.4-14.6) H 09/07/23 15:01
INR 1.30 09/07/23 15:01
APTT 37.5 Sec (23.4-35.0) H 09/07/23 15:01
Magnesium 2.4 mg/dl (1.6-2.3) H 09/09/23 04:38
Physical Exam
Constitutional: No acute distress
Cardiovascular: Rhythm & rate is regular, Pedal edema is absent, JVD pressure is normal, Systolic murmur absent, Diastolic murmur absent and Rhythm/rate is irregular
Respiratory: Respiratory effort normal, Lungs clear to auscul., Wheeze Absent, Crackles Absent and Rhonchi Absent
Neuro/Psych: AO x 3
Data Reviewed
-
Date of Service: September 09, 2023
[2023-09-09 09:47] LABS: Glucose - Point of Care 175 mg/dl (70-99)
--- NOTE | 2023-09-09 10:00 | PTCARENOTE ---
Pt assisted back to bed with [address]s d/c with 2 RNs. Pt tolerated. Insulin gtt d/c per orders. Pt resting in bed at this time.
[2023-09-09] MEDS: JARDIANCE 25 MG PO (10:16)
--- NOTE | 2023-09-09 12:00 | PTCARENOTE ---
Pt reassessed. VSS. POX 95% on RA. BP 110/76. NSR with PACs and PVCs on tele with rates in the 70s. Surgical sites stable. Pt assisted OOB to ambulate in the ambrosio 100'. Pt tolerated. Sitting comfortably in the chair.
[2023-09-09 13:23] LABS: Glucose - Point of Care 115 mg/dl (70-99)
--- NOTE | 2023-09-09 15:03 | CM ---
Reviewed chart. Met with and Mrs. Beverly to review discharge plans. He states he is feeling well. He ambulated in the hallway today. He states prior to admission he resides with his spouse in a one story rancher with one step to enter. He
states prior to admission he was independent with ambulation and adls. He states he is planning on getting a raised toilet seat. He has a prescription plan with [employer]. Telephone call to [employer], ([phone]) to check on
coverage for Eliquis 5 mg po bid. His co-pay for one month is $20.00 and for 90 day mail order his co-pay is $40.00. He has commercial insurance and he can use the $10.00 co-pay card. Placed the co-pay card in his red discharge folder. We
reviewed a home visit by the Cardiothoracic Transitional Care Nurse. He is agreeable to a home visit. Medical work-up in progress. The discharge plan is to return home with his spouse and a home visit by the Cardiothoracic Transitional Care Nurse
when medically stable.
--- NOTE | 2023-09-09 15:15 | PTCARENOTE ---
Pt reassessed. VSS. NSR on tele with rates in the 70s. BP stable 121/83. POX 92% on RA. Surgical sites stable. Right IJ cordis and PIV intact. Pt urinated 500mL kwan urine in the urinal. Ambulated 100' in the ambrosio. Pt tolerated.
[2023-09-09 17:24] LABS: Glucose - Point of Care 138 mg/dl (70-99)
--- NOTE | 2023-09-09 20:00 | PTCARENOTE ---
[facility]; on walking rounds, pt's showed mental status change, left sided weakness and facial drooping; code 9 stoke alert was called; pt was brought down to CT; see out going RN's note for complete details; on return from CT pt was
reassess and had returned to base line, see worklist neuro assessment; 100ml/hr NSS was started per CVPA; NSR on monitor, VSS; will continue to monitor
--- NOTE | 2023-09-09 20:30 | PTCARENOTE ---
Received pt from [facility]; pt is AAOx3, denies pain; NSR on monitor, VSS; heart sounds audible, radial and dp pulses palpable, no edema noted; lung sounds diminished at b/l bases, spo2 92% on RA; hypoactive BS x4 quadrants, abdomen soft non tender;
pt voiding clear yellow urine; surgical sites and dressings maintained; right IJ cordis and PIV maintained; call esparza within reach; will continue to monitor.
[2023-09-09] MEDS: LIPITOR 80 MG PO (21:46)
[2023-09-09] MEDS: FLEXERIL 10 MG PO (21:46)
[2023-09-09 22:29] LABS: Glucose - Point of Care 197 mg/dl (70-99)
[2023-09-10] VITALS (17 sets, daily range): BP systolic 104–144; BP diastolic 78–110; PULSE 68; O2SAT 95–99; BMI 31.7
--- NOTE | 2023-09-10 | PTCARENOTE ---
pt assessment unchanged; pt resting comfortably in bed; NSR on monitor, VSS; call esparza within reach; will continue to monitor.
[2023-09-10] MEDS: ROXICODONE 5 MG PO ×4 (01:11→20:03)
[2023-09-10] MEDS: CORDARONE 103 MG IV ×2 (02:10→17:29)
--- NOTE | 2023-09-10 04:00 | PTCARENOTE ---
Pt assessment unchanged; pt resting comfortably in bed; NSR on monitor, VSS; 5mg of esteban given for pain/insomnia; Amiodarone bolus given per CVPA for on going PACs; AM labs drawn and sent; EKG obtained; call esparza within reach; will continue to
monitor.
[2023-09-10 04:32] LABS: Hematocrit 34.2 % (39.0-52.0); Hemoglobin 11.9 g/dL (13.0-18.0); Mean Corp Hgb Conc. 34.8 g/dL (33.0-37.0); Mean Corpuscular Hgb 27.7 pg (27.0-31.0); Mean Corpuscular Volume 79.7 fL (80.0-94.0); Mean Platelet Volume 9.2 fL (7.4-10.4); Platelet Count 198 10^3/uL (130-400); Red Blood Cell Count 4.29 10^6/uL (4.70-6.10); Red Cell Dist. Width 13.8 % (11.5-14.5); White Blood Cell Count 8.6 10^3/uL (4.8-10.8)
--- NOTE | 2023-09-10 04:36 | ECGCV ---
José Miguel Renee notified of ECG critical value identified by electronic interpretation on ECG completed on 09/10/2023, at 0436.
[2023-09-10 04:59] LABS: Blood Urea Nitrogen 25 mg/dl (9-20); Carbon Dioxide 24 mmol/L (22-30); Chloride 104 mmol/L (98-107); Estimated Creatinine Clearance 116 ml/min; Glucose 102 mg/dl (70-99); Magnesium 2.3 mg/dl (1.6-2.3); Potassium 4.2 mmol/L (3.5-5.1); Sodium 137 mmol/L (135-145); eGFR > 60.00
--- NOTE | 2023-09-10 06:16 | W.PN.CT ---
Today's Communication / Plan
-
-pod #3
-no major issues overnight, feels better since CTs came out
-nsr with frequent PACs, occasional PVCs overnight - gave Amio bolus
-consider maintaining Cordis another 24 hrs in case requires Amio drip for a-fib
-noted Cardiology recommendation for Clopidogrel/Eliquis on dc if possible
-cont. current meds (ASA, Plavix, Amiodarone, Lipitor, Lopressor- was on Coreg @ home)
-no significant weight change from preop, weaned off O2 - pOx 92-94% on RA
-encourage IS, OOB, ambulate
Assessment / Plan
-
Assessment:
-S/P CABG x 4 (PRAMOD to LAD, GSV to D1, GSV to OM3, GSV to PDA)/Endoscopic harvest/prep of RLE GSV/ ELAA, by Dr. Frazier, 09/07/23, pod#3
-Severe 3v CAD
-LVEF 55-60% per intraop XOCHILT
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
-HTN
-T2DM (A1C 6.9)
-Hyperlipidemia
-Class 1 obesity
-Gout
-Former tobacco abuse (80 pk/yrs, quit 2018)
-DJD of hip, awaiting hip replacement surgery
-S/p Ablation for atrial flutter-2019, [facility]
-S/P Implantable loop recorder-2020, [facility]
-S/p Cervical fusion�1999
-S/p Left arthroscopic knee surgery�2008
-S/P Cyst removal
-Acute postop blood loss/Anemia
-Acute postop atelectasis/pleural effusion
-Acute postop hypovolemia with subsequent hypervolemia
-Postop acute pericarditis (+ rub) - pain is manageable and not excruciating
Discussed patient care with: Nursing and Care Team
Subjective
Procedure
S/P CABG x 4 (PRAMOD to LAD, GSV to D1, GSV to OM3, GSV to PDA)/Endoscopic harvest/prep of RLE GSV/ ELAA, by Dr. Frazier, 09/07/23
-
Date of Service: September 10, 2023
Objective Data
-
PT 16.0 Sec (11.4-14.6) H 09/07/23 15:01
INR 1.30 09/07/23 15:01
APTT 37.5 Sec (23.4-35.0) H 09/07/23 15:01
Vital Signs
Vital Signs
Temp Pulse Resp BP Pulse Ox
98.4 F 74 18 120/84 93
09/10/23 00:00 09/10/23 00:00 09/10/23 00:00 09/10/23 00:00 09/10/23 00:00
CT Intake/Output/Weight
09/09/23 09/09/23 09/10/23
06:59 18:59 06:59
Intake Total 123.3 / 856.5 724.6 / 724.6
Output Total 895 / 1300 1245 / 3370 2125 / 3370
Balance -771.7 / -443.5 -520.4 / -2645.4 -2125 / -2645.4
SaO2: 93
Physical Exam
-
General: Awake, Oriented and AOx3
Cardiovascular: Regular rate & rhythm, No Murmurs, No Rub and No Gallop
Respiratory: Decreased Breath Sounds (at bases, otherwise clear)
Sternum: Stable
Incision: Clean, Dry, Intact and Dressing Intact
Extremities: Other (trace edema b/l)
Data Reviewed
-
Lab Results: Results Reviewed
Medications: Active Meds Reviewed
Chest X-Ray: Report Reviewed and Image Reviewed
ECG: Report Reviewed and Image Reviewed
[2023-09-10] MEDS: TYLENOL 1000 MG PO ×3 (06:19→22:20)
[2023-09-10] MEDS: BACTROBAN 2% OINTMENT 1 APPLIC NASAL ×2 (07:29→22:20)
[2023-09-10] MEDS: FLUSH (NSS) 1 FLUSH IV (07:29)
[2023-09-10] MEDS: NSS IV (07:30)
[2023-09-10] MEDS: JARDIANCE 25 MG PO (07:30)
[2023-09-10] MEDS: SENOKOT-S 1 TABLET PO ×2 (07:30→20:02)
[2023-09-10] MEDS: LOPRESSOR 25 MG PO (07:30)
[2023-09-10] MEDS: NEURONTIN 200 MG PO ×3 (07:30→20:03)
[2023-09-10] MEDS: PACERONE 200 MG PO ×3 (07:30→20:04)
[2023-09-10] MEDS: PROTONIX 40 MG PO (07:30)
[2023-09-10] MEDS: LIDOCAINE 4% PATCH 1 PATCH TOPICAL (07:30)
[2023-09-10] MEDS: LOW STRENGTH ASPIRIN 81 MG PO (07:30)
[2023-09-10] MEDS: PLAVIX 75 MG PO (07:30)
--- NOTE | 2023-09-10 07:30 | PTCARENOTE ---
Resumed care of patient. Walking rounds completed with previous RN. Pt assessed while he was sitting in the chair. Pt alert and oriented x4. Pt denies pain, shortness of breath, and nausea. VILLEGAS with equal strength throughout. NSR on tele with rates
in the 80s. BP stable 123/80. Heart tones audible. Bilateral radial and DP pulses palpable. No edema noted. POX 93% on RA. Lungs diminished in the bases. IS encouraged-1000mL achieved. Occasional moist productive cough. Abdomen soft, round,
nontender. +BS. Pt reports passing gas. Pt voiding large amounts of kwan urine in the urinal. Sternal incision covered with Aquacel-CDI. Old chest tube sites covered-CDI. Right groin puncture approximated with skin glue-ISAURO. Right SVG harvest site
approximated with skin glue-TAILINGS WORKER. Right IJ cordis with NSS KVO. Right hand 18g PIV intact. See MAR for medication administration. See worklist for complete nursing assessment. Plan of care reviewed and patient in agreement.
[2023-09-10 07:35] LABS: Glucose - Point of Care 137 mg/dl (70-99)
--- NOTE | 2023-09-10 08:13 | W.PN.CD ---
Today's Communication / Plan
-
continue current post op care
eliquis/plavix on discharge
Impression / Plan
-
BACKGROUND: 63M with paroxysmal atrial fibrillation/flutter, HTN, HLD, NIDDM, and gout who was undergoing workup for hip replacement when a PET/CT suggested potential of coronary ischemia. This led to cardiac catheterization which demonstrated
multivessel CAD prompting referral for CABG
Mva Operator: Dr. Satish Burton
IMPRESSION/PLAN:
MCAD S/P CABG x 4 (PRAMOD to LAD, GSV to D1, GSV to OM3, GSV to PDA) with AtriClip on 09/07/[address] Frazier
- XOCHILT with normal biventricular function and without RWMA
- EKG with diffuse HAIM c/w pericarditis but he has absolutely no symptoms, will monitor, if needed will add colchicine
- On BB, atorva, DAPT
Paroxysmal atrial fibrillation
Atrial flutter, type unknown
- Follow telemetry
- Oral Anticoagulation: Recommend DOAC with plavix by discharge
- [id number]: score 3 (HTN, Diabetes Mellitus, Vascular disease)
HTN
NIDDM, Hgba1c 6.9%, on Jardiance & Ozempic
Mild aortic stenosis, peak/mean gradients are 22/11mmHg, JHONY 1.3cm sq, using a LVOT of 1.9cm
HLD, goal LDL < 70, ideally < 55, continue atorvastatin 80mg
Gout
SUBJECTIVE:
no complaints, feeling good, oob in chair
Physical Exam
Vital Signs/Labs
Vital Signs
Temp Pulse Resp BP Pulse Ox
98.4 F 81 16 123/80 93
09/10/23 07:38 09/10/23 07:38 09/10/23 07:38 09/10/23 07:38 09/10/23 07:38
09/09/23 09/10/23 09/11/23
06:59 06:59 06:59
Actual Weight 116.8 kg 114.9 kg
09/10/23 04:06
09/10/23 04:06
PT 16.0 Sec (11.4-14.6) H 09/07/23 15:01
INR 1.30 09/07/23 15:01
APTT 37.5 Sec (23.4-35.0) H 09/07/23 15:01
Magnesium 2.3 mg/dl (1.6-2.3) 09/10/23 04:06
Physical Exam
Constitutional: No acute distress
Cardiovascular: Rhythm & rate is regular, Pedal edema is absent, JVD pressure is normal, Systolic murmur absent and Diastolic murmur absent
Respiratory: Respiratory effort normal, Lungs clear to auscul., Wheeze Absent, Crackles Absent and Rhonchi Absent
Neuro/Psych: AO x 3
Data Reviewed
-
Date of Service: September 10, 2023
EKG: Tracing Personally Visualized and interpreted (Sinus with diffuse HAIM c/w pericarditis)
[2023-09-10 11:59] LABS: Glucose - Point of Care 113 mg/dl (70-99)
--- NOTE | 2023-09-10 12:11 | PTCARENOTE ---
Pt reassessed. VSS. NSR on tele with rates in the 70s. BP stable 127/87. POX 94% on RA. Surgical sites stable. Pt c/o 01/29 hip pain-see AUG. Pt ambulated 300' in the ambrosio and tolerated. Pt's at bedside. Ordering lunch.
--- NOTE | 2023-09-10 15:43 | PTCARENOTE ---
Pt reassessed. VSS. NSR on tele with rates 70s-80s. BP stable 118/79. POX 95% on RA. Surgical sites stable. 4 old chest tube sites approximated with sutures intact. Dressing removed. No other acute changes from previous assessment. Pt ambulating in
the halls independently.
[2023-09-10] MEDS: COLCHICINE 0.299999999999999989 MG PO (16:09)
--- NOTE | 2023-09-10 17:10 | PTCARENOTE ---
Pt noted to be in Afib on tele. CT PROGRAM ANALYST notified. Amio bolus and gtt ordered. Pt does not report feeling any differently. BP stable.
[2023-09-10] MEDS: CORDARONE 518 MG IV (17:29)
[2023-09-10 18:12] LABS: Glucose - Point of Care 137 mg/dl (70-99)
[2023-09-10] MEDS: LIPITOR 80 MG PO (20:01)
[2023-09-10] MEDS: FLEXERIL 10 MG PO (20:02)
[2023-09-10] MEDS: LOPRESSOR 37.5 MG PO (20:02)
[2023-09-10 22:21] LABS: Glucose - Point of Care 132 mg/dl (70-99)
[2023-09-11] VITALS (9 sets, daily range): BP systolic 101–131; BP diastolic 73–91; PULSE 74; O2SAT 98–99; BMI 31.4
--- NOTE | 2023-09-11 02:52 | W.PN.CT ---
Addendum entered and electronically signed by Jude Frazier MD 09/11/23 08:19:
I saw and examined the patient.
The PA's note was reviewed and I agree with the note.
Comment:
POD#4 s/p CABG x 4, ELAA
Doing well. Anxious for D/C. Pt. w/ AF on POD#3 into POD#4 (~6 hours), currently in NSR. AVSS.
- Check 2-view CXR
- D/C planning for later today vs. tomorrow
- Continue ASA/plavix, BB, amio, colchicine, lipitor
- Appreciate cardiology recommendations regarding Eliquis on D/C, however, I am hesitant to institute this therapy given Mr. Beverly's postoperative pericarditis and potential risk for pericardial effusion/bleeding. He had prior ablation in 2019
and has an implantable loop recorder. 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 I excluded his appendage. Will discuss this further w/ my cardiology colleagues.
Original Note:
Today's Communication / Plan
-
-pod #4
-no major issues overnight
-Drips: Amio 0.5
-converted to NSR @ ~1am
-noted Cardiology recommendation for Clopidogrel/Eliquis on dc
-current meds (ASA, Plavix, Amiodarone, Lipitor, Colchicine, Toprol 50 qd, Jardiance, Protonix)
-follow 2v-CXR
-encourage IS, OOB, ambulate
-possible d/c soon
Assessment / Plan
-
Assessment:
-S/P CABG x 4 (PRAMOD to LAD, GSV to D1, GSV to OM3, GSV to PDA)/Endoscopic harvest/prep of RLE GSV/ ELAA, by Dr. Frazier, 09/07/23, pod#4
-Severe 3v CAD
-LVEF 55-60% per intraop XOCHILT
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
-HTN
-T2DM (A1C 6.9)
-Hyperlipidemia
-Class 1 obesity
-Gout
-Former tobacco abuse (80 pk/yrs, quit 2018)
-DJD of hip, awaiting hip replacement surgery
-S/p Ablation for atrial flutter-2019, [facility]
-S/P Implantable loop recorder-2020, [facility]
-S/p Cervical fusion�1999
-S/p Left arthroscopic knee surgery�2008
-S/P Cyst removal
-Acute postop blood loss/Anemia
-Acute postop atelectasis/pleural effusion
-Acute postop hypovolemia with subsequent hypervolemia
-Postop acute pericarditis (+ rub) - pain is manageable and not excruciating
-A-fib on 09/09 - tx with Amio bolus and drip - converted to nsr @~1am on 09/10
Discussed patient care with: Nursing and Care Team
Subjective
Procedure
S/P CABG x 4 (PRAMOD to LAD, GSV to D1, GSV to OM3, GSV to PDA)/Endoscopic harvest/prep of RLE GSV/ ELAA, by Dr. Frazier, 09/07/23
-
Date of Service: September 11, 2023
Objective Data
-
PT 16.0 Sec (11.4-14.6) H 09/07/23 15:01
INR 1.30 09/07/23 15:01
APTT 37.5 Sec (23.4-35.0) H 09/07/23 15:01
Vital Signs
Vital Signs
Temp Pulse Resp BP Pulse Ox
98.8 F 109 16 131/82 95
09/10/23 20:00 09/10/23 19:57 09/10/23 15:42 09/10/23 20:02 09/10/23 15:42
CT Intake/Output/Weight
09/10/23 09/10/23 09/11/23
06:59 18:59 06:59
Intake Total 690 / 1414.6 736.6 / 736.6
Output Total 2675 / 3920 1050 / 1600 550 / 1600
Balance -1985 / -2505.4 -313.4 / -863.4 -550 / -863.4
SaO2: 95
Physical Exam
-
General: Awake, Oriented and AOx3
Cardiovascular: Regular rate & rhythm, No Murmurs, No Rub and No Gallop
Respiratory: Decreased Breath Sounds (at bases, otherwise clear)
Sternum: Stable
Incision: Clean, Dry, Intact and Dressing Intact
Abdomen: soft, nontender, nondistended + bowel sounds
Extremities: Other (trace edema b/l)
Data Reviewed
-
Lab Results: Results Reviewed
Medications: Active Meds Reviewed
Chest X-Ray: Report Reviewed and Image Reviewed
ECG: Report Reviewed and Image Reviewed
[2023-09-11 05:34] LABS: Hematocrit 35.9 % (39.0-52.0); Hemoglobin 11.9 g/dL (13.0-18.0); Mean Corp Hgb Conc. 33.1 g/dL (33.0-37.0); Mean Corpuscular Hgb 27.2 pg (27.0-31.0); Mean Corpuscular Volume 82.2 fL (80.0-94.0); Mean Platelet Volume 9.2 fL (7.4-10.4); Platelet Count 216 10^3/uL (130-400); Red Blood Cell Count 4.37 10^6/uL (4.70-6.10); Red Cell Dist. Width 13.8 % (11.5-14.5); White Blood Cell Count 8.3 10^3/uL (4.8-10.8)
[2023-09-11 05:56] LABS: Blood Urea Nitrogen 27 mg/dl (9-20); Carbon Dioxide 23 mmol/L (22-30); Chloride 104 mmol/L (98-107); Estimated Creatinine Clearance 115 ml/min; Glucose 125 mg/dl (70-99); Magnesium 2.4 mg/dl (1.6-2.3); Potassium 4.1 mmol/L (3.5-5.1); Sodium 138 mmol/L (135-145); eGFR > 60.00
--- NOTE | 2023-09-11 08:00 | PTCARENOTE ---
Resumed care of patient. Pt assessed while he was sitting in the chair. Pt alert and oriented x4. Pt denies pain, nausea, and shortness of breath. VILLEGAS with equal strength. Independent in the room and ambrosio. NSR on tele with rates in the 60s. BP
stable 121/86. Heart tones audible. Bilateral radial pulses palpable, bilateral DP pulses weakly palpable. No edema noted. POX 95% on RA. Lungs clear throughout. IS encouraged-1000mL achieved. No cough noted. Abdomen soft, round, nontender. +BS. Pt
reports passing gas, no constipation. Pt voiding independently in the bathroom, reports no concerns. Sternal incision covered with Aquacel-CDI. Old chest tube sites approximated with sutures intact. ISAURO. Right groin puncture site approximated with
skin glue, ISAURO. Right SVG site approximated with skin glue, BURIAL VAULT DELIVERER AND INSTALLER. Right IJ cordis intact with NSS KVO and Amio gtt infusing at 0.5mg/min. Right hand 18g PIV intact. See MAR for medication administration. See worklist for complete nursing assessment.
Plan of care reviewed and pt in agreement.
[2023-09-11] MEDS: FLUSH (NSS) 1 FLUSH IV (08:08)
[2023-09-11] MEDS: LIDOCAINE 4% PATCH 1 PATCH TOPICAL (08:08)
[2023-09-11 08:10] LABS: Glucose - Point of Care 137 mg/dl (70-99)
[2023-09-11] MEDS: PLAVIX 75 MG PO (08:10)
[2023-09-11] MEDS: TOPROL XL 50 MG PO (08:10)
[2023-09-11] MEDS: PROTONIX 40 MG PO (08:10)
[2023-09-11] MEDS: LOW STRENGTH ASPIRIN 81 MG PO (08:10)
[2023-09-11] MEDS: TYLENOL 1000 MG PO (08:10)
[2023-09-11] MEDS: NEURONTIN 200 MG PO (08:10)
[2023-09-11] MEDS: BACTROBAN 2% OINTMENT 1 APPLIC NASAL (08:10)
[2023-09-11] MEDS: PACERONE 200 MG PO (08:11)
[2023-09-11] MEDS: SENOKOT-S 1 TABLET PO (08:11)
[2023-09-11] MEDS: COLCHICINE 0.299999999999999989 MG PO (08:11)
[2023-09-11] MEDS: JARDIANCE 25 MG PO (08:11)
[2023-09-11] MEDS: NSS 500 IV (08:22)
--- NOTE | 2023-09-11 09:40 | W.PN.CD ---
Today's Communication / Plan
-
See discussion above regarding anticoagulation
follow up with Dr Rosales
Impression / Plan
-
BACKGROUND: 63M with paroxysmal atrial fibrillation/flutter, HTN, HLD, NIDDM, and gout who was undergoing workup for hip replacement when a PET/CT suggested potential of coronary ischemia. This led to cardiac catheterization which demonstrated
multivessel CAD prompting referral for CABG
Concreting Supervisor: Dr. Satish Burton
IMPRESSION/PLAN:
MCAD S/P CABG x 4 (PRAMOD to LAD, GSV to D1, GSV to OM3, GSV to PDA) with AtriClip on 09/07/[address] Frazier
- XOCHILT with normal biventricular function and without RWMA
- EKG with diffuse HAIM c/w pericarditis but he has absolutely no symptoms, given brief AF, colchicine added (reduced dose with amiodarone)
- On BB, atorva, DAPT
Paroxysmal atrial fibrillation
Atrial flutter, type unknown
-~8 hours of af 09/10/23
- Oral Anticoagulation: Recommended DOAC with antiplatlet by discharge for optimal CVA risk reduction. 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 Intraop he had JO clip, now with e/o of
subclinical pericarditis, CT surgery would like to at least temporarily move forward on DAPT given increased risk of pericardial effusion. While DAPT offers some but not full protection, this is reasonable in the short term if willing to accept
slightly higher CVA risk. I did explain for optima CVA risk reduction DOAC should be used, albeit at a higher risk of bleeding complication. Ultimately, when ok with CT Surgery post op would transition to antiplatelet and DOAC.
-Eliquis is affordable to him.
- [id number]: score 3 (HTN, Diabetes Mellitus, Vascular disease)
HTN
NIDDM, Hgba1c 6.9%, on Jardiance & Ozempic
Mild aortic stenosis, peak/mean gradients are 22/11mmHg, JHONY 1.3cm sq, using a LVOT of 1.9cm
HLD, goal LDL < 70, ideally < 55, continue atorvastatin 80mg
Gout
SUBJECTIVE:
no complaints, feeling good, oob in chair, would like to go home.
Physical Exam
Vital Signs/Labs
Vital Signs
Temp Pulse Resp BP Pulse Ox
97.6 F 72 16 110/85 95
09/11/23 08:00 09/11/23 09:37 09/11/23 08:00 09/11/23 09:37 09/11/23 08:00
09/10/23 09/11/23 09/12/23
06:59 06:59 06:59
Actual Weight 114.9 kg 113.9 kg
09/11/23 05:21
09/11/23 05:21
PT 16.0 Sec (11.4-14.6) H 09/07/23 15:01
INR 1.30 09/07/23 15:01
APTT 37.5 Sec (23.4-35.0) H 09/07/23 15:01
Magnesium 2.4 mg/dl (1.6-2.3) H 09/11/23 05:21
Physical Exam
Constitutional: No acute distress
Cardiovascular: Rhythm & rate is regular, Pedal edema is absent, JVD pressure is normal, Systolic murmur absent, Diastolic murmur absent and Pedal edema present
Respiratory: Respiratory effort normal, Lungs clear to auscul., Wheeze Absent and Crackles Absent
Neuro/Psych: AO x 3
Data Reviewed
-
Date of Service: September 11, 2023
EKG: Other (tele with 8 hours fib yesterday now in sinus)
Medical Tests (PFT, Pathology etc): Discussed with Physician (Dr Freddie burr)
--- NOTE | 2023-09-11 10:11 | CM ---
Reviewed chart. Met with Mr. Beverly to review discharge plans. He states he feels well and maybe able to go home soon. He ambulated in the hallway today. He states prior to admission he resides with his spouse in a one story rancher with one
step to enter. Prior to admission he was independent with ambulation and adls. He is planning to get a raised toilet set. He has a prescription plan with [facility] and uses [facility]. He states his spouse will be off for a few weeks to
assist in his care when he goes home. We reviewed a home visit by the Cardiothoracic Transitional Care Nurse. He is agreeable to a home visit. Medical work-up in progress. The discharge plan is to return home with his spouse and a home visit by
the Cardiothoracic Transitional Care Nurse when medically stable.
--- NOTE | 2023-09-11 11:14 | W.DCSUMMARY ---
Discharge Summary
Discharge Data
Date of Admission: 09/07/23
Date of Discharge: 09/11/23
-
Pending Results: No
Hospital Course
Primary care physician: Black Osuna
Outpatient employment and claims aide: Satish Burton
Inpatient consultants: [facility]
Procedures:
1. CABG with left atrial appendage exclusion
Primary Diagnosis:
1. Multivessel coronary disease
Secondary Diagnoses:
1. History of atrial fibrillation with loop recorder (2020) and ablation (2015)
2. Presence of implantable loop recorder
3. Type 2 diabetes (A1c 6.9)
4. Hypertension
5. Obesity (117.75KG)
6. History of gout
#7 hip DJD
HPI: Diego Montoya is a 63-year-old male electively admitted on 09/07/2023 for CABG. Multivessel coronary disease was identified on cardiac cath as part of his workup for elective hip replacement.
Hospital course: Patient underwent CABG x 4 with GAMEZ to LAD, saphenous vein graft to diagonal 1, saphenous vein graft to OM 3, saphenous vein graft to PDA and eft atrial appendage # 35 mm atrial clip. Postprocedure transesophageal echocardiogram
reported ejection fraction of 55-60%. The patient received no blood products intraoperatively and was extubated in the operating room. Patient returned to the CVICU on levo bed, insulin, and Precedex. Postoperative day #1 Braun was removed and
patient was declined. Postop day #2 pericarditis was noted on the EKG and colchicine was initiated 0.3 mg as patient on amiodarone. Chest tubes were removed and Jardiance restarted. On postoperative day #3 patient converted to atrial fibrillation
for approximately 6 hours and amiodarone bolus/infusion was initiated with conversion to sinus rhythm. Discussion regarding anticoagulation ensued between cardiology and cardiac surgery and ultimate decision was to discharge with aspirin/Plavix due
to left atrial appendage exclusion and presence of implantable loop recorder. Toprol will be initiated on discharge in place of Coreg per cardiology. Patient completed steps with cardiac rehab and is deemed stable for discharge to home today.
Home medication changes:
see below
Discharge Plan
-
Patient Disposition: Home (Routine Discharge)
Discharge Diagnosis/Procedures: CAD/CABG
Condition: Good
Diet: Low Cholesterol and Low Sodium
Activity: No strenuous activity
Driving Restrictions: Not until seen by your Dr
Bathing Restrictions: OK to Shower
Other Services: Cardiac Rehab
Specialty Instructions: Weigh Daily- Call MD for wt gain/loss 3 lbs overnight/5 lbs in 1 week
Referrals:
CT Transitional Care Nurse [Outside] - in one to two days
(
The Cardiothoracic Transitional Care Nurse will call you to set up a visit in 1-2 days.)
[facility] [Outside] - 10/15/23 1:00 pm
(Cardiac Rehab Orientation appointment is on 10/15/23 at 1:00 pm
The Cardiac Rehab gym is located on the first floor of the [facility].)
Black Osuna MD [Family Provider] - in four to six weeks (Please make an appointment in four to six weeks. )
Satish Burton MD [Non-Admitting Privileges] - 11/02/23 2:40 pm
Ervin Steiner MD [Active] - in two to four weeks
(Dr. Steiner or [facility]OUT MAN
Rule out GERMAN-needs home sleep study)
Jude Frazier MD [Active] - 10/13/23 1:00 pm
Prescriptions:
New
acetaminophen 325 mg Tablet
650 mg PO Q4HPRN PRN (Reason: mild pain,headache,temp >101F ) Qty: 0 0RF
clopidogrel 75 mg Tablet
75 mg PO DAILY Qty: 30 1RF
pantoprazole 40 mg Tablet,Delayed Release (Dr/Ec)
40 mg PO DAILY Qty: 30 1RF
colchicine 0.6 mg Tablet
0.3 mg PO DAILY Qty: 30 0RF
cyclobenzaprine 10 mg Tablet
5 mg PO Q8HPRN PRN (Reason: muscle spasm) Qty: 20 0RF
amiodarone [Pacerone] 200 mg Tablet
200 mg PO BID Qty: 60 1RF
metoprolol succinate 50 mg Tablet Extended Release 24 Hr
50 mg PO DAILY Qty: 30 1RF
gabapentin 100 mg Capsule
200 mg PO TID Qty: 21 0RF
oxycodone 5 mg Tablet
2.5 mg PO Q4HPRN PRN (Reason: severe pain) Qty: 20 0RF
Continued
Ozempic 1 mg/dose (4 mg/3 mL) Pen Injector
1 mg SC SA
aspirin 81 mg Capsule
81 mg PO DAILY
atorvastatin 80 mg tablet
80 mg PO QPM
amlodipine 5 mg tablet
5 mg PO DAILY
Jardiance 25 mg Tablet
25 mg PO DAILY Qty: 0 0RF
Discontinued
indomethacin 50 mg Capsule
50 mg PO DAILY
colchicine [Colcrys] 0.6 mg Tablet
0.6 mg PO DAILY
carvedilol [Coreg] 6.25 mg Tablet
12.5 mg PO BID
nitroglycerin [nitroglycerin] 0.4 mg tablet, sublingual
0.4 mg sublingual [id number] PRN (Reason: chest pain) Qty: 25 2RF
Discharge Orders:
Discharge Patient (As Directed); Ordered 09/11/23
Ordered By: Glenda Rodriguez
Care Plan Goals
Care Plan Goals:
Problem: Readiness for enhanced knowledge related to diagnosis and treatment plan
Goal: Understand your diagnosis and treatment plan needs, including medications if applicable.
Instructions: Know your diagnosis, underlying causes and treatment plan options, including medications if applicable. Consult with your health care team to learn about your diagnosis and treatment plan, including medications if applicable.
[2023-09-11 12:06] LABS: Glucose - Point of Care 124 mg/dl (70-99)
--- NOTE | 2023-09-11 12:30 | PTCARENOTE ---
Pt reassessed. VSS. NSR on tele with rates in the 70s. BP stable. POX 98% on RA. Surgical sites stable. No c/o pain. No changes from previous assessment.
--- NOTE | 2023-09-11 13:05 | PTCARENOTE ---
Right IJ cordis d/c. Sternal Aquacel removed-incision approximated. Pt assisted to the shower. Pt tolerated.
--- NOTE | 2023-09-11 13:30 | PTCARENOTE ---
Discharge order placed. PIV d/c. Tele d/c. Pt tolerated. All discharge instructions and medications reviewed. All questions answered. Pt stable prior to discharge.
== END 2023-09-11 14:08 | disposition home or self-care (01) | DRG 236 ==
LOC: CVICU 05:06
PROVIDERS: Physician Assistant Surgical; ADMITTING PHYSICIAN Thoracic Surgery (Cardiothoracic Vascular Surgery); CONSULT PHYSICIAN Internal Medicine Critical Care Medicine; FAMILY PHYSICIAN Family Medicine
PROC: 5A1221Z Performance of Cardiac Output, Continuous (ICD-10-PCS; 2023-09-07)
PROC: 0212093 Bypass Coronary Artery, Three Arteries from Coronary Artery with Autologous Venous Tissue, Open Approach (ICD-10-PCS; 2023-09-07)
PROC: 02L70CK Occlusion of Left Atrial Appendage with Extraluminal Device, Open Approach (ICD-10-PCS; 2023-09-07)
PROC: 02100ZC Bypass Coronary Artery, One Artery from Thoracic Artery, Open Approach (ICD-10-PCS; 2023-09-07)
PROC: 06BP4ZZ Excision of Right Saphenous Vein, Percutaneous Endoscopic Approach (ICD-10-PCS; 2023-09-07)
PROC: B24BZZ4 Ultrasonography of Heart with Aorta, Transesophageal (ICD-10-PCS; 2023-09-07)
DX: I25.10 Atherosclerotic heart disease of native coronary artery without angina pectoris (principal); I48.92 Unspecified atrial flutter; Z68.41 Body mass index [BMI] 40.0-44.9, adult; I30.9 Acute pericarditis, unspecified; D62 Acute posthemorrhagic anemia; J98.11 Atelectasis; J90 Pleural effusion, not elsewhere classified; E86.1 Hypovolemia; E87.70 Fluid overload, unspecified; G47.33 Obstructive sleep apnea (adult) (pediatric); I10 Essential (primary) hypertension; I48.0 Paroxysmal atrial fibrillation; M10.9 Gout, unspecified; M16.10 Unilateral primary osteoarthritis, unspecified hip; E78.5 Hyperlipidemia, unspecified; E11.65 Type 2 diabetes mellitus with hyperglycemia; E66.01 Morbid (severe) obesity due to excess calories; Z98.1 Arthrodesis status; Z79.84 Long term (current) use of oral hypoglycemic drugs; Z79.82 Long term (current) use of aspirin; Z79.85 Long-term (current) use of injectable non-insulin antidiabetic drugs; Z87.891 Personal history of nicotine dependence
CPT/HCPCS: 36415; 71045; 71046; 80048; 80053; 81003; 82248; 82330; 82565; 82805; 82947; 82962; 83036; 83735; 84132; 84302; 84520; 85014; 85018; 85025; 85027; 85049; 85610; 85730; 86850; 86900; 86901; 86920; 87070; 93005; 93312; 93320; 93325; 93880; P9045